=== PATIENT | male | born 1950 | race Caucasian/White ===

== ENCOUNTER 2019-10-05 07:33 | Outpatient (CLI) | payer MEDICARE, SELFPAY ==
[2019-10-05 07:43] LABS: Add Urine Microscopic? NO; Appearance Urine Clear (Clear); Bilirubin Urine Negative (Negative); Blood Urine Negative (Negative); Color Urine Yellow (Yellow); Glucose Urine UA Negative (Negative); Ketones Urine Negative (Negative); Leukocyte Esterase Ur Negative (Negative); Nitrate Urine Negative (Negative); Protein Urine Negative (Negative); Urobilinogen Urine 0.2 mg/dL (0.2-1.0); pH Urine 5.5 (5.0-8.0)
[2019-10-05 07:54] LABS: Hemoglobin A1C 5.7 % (<5.7)
[2019-10-05 08:55] LABS: Alanine Aminotransferase 39 U/L (16-63); Albumin Level 3.5 g/dL (3.4-5.0); Alkaline Phosphatase 83 U/L (46-116); Anion Gap 13.3 mmol/L (7-16); Aspartate Amino Transferase 29 U/L (15-37); Bilirubin,Total 0.4 mg/dL (0.00-1.00); Blood Urea Nitrogen 13 mg/dL (7-18); Carbon Dioxide 28 mmol/L (21-32); Chloride 103 mmol/L (98-108); Cholesterol 240 mg/dL (0-200); Creatine Kinase 181 U/L (39-308); Estimated Glomerular Filt Rate > 60; Free T3 3.13 pg/mL (2.18-3.98); Free T4 Free Thyroxine 0.98 ng/dL (0.76-1.46); Glucose 115 mg/dL (70-99); HDL Direct 74 mg/dL (40-60); LDL Cholesterol Calculated 142 mg/dL (<130); Osmolality Calculated 291 mOsm/kg (285-295); Potassium 4.3 mmol/L (3.5-5.1); Sodium 140 mmol/L (136-145); Thyroid Stimulating Hormone 1.98 uIU/mL (0.36-3.74); Total Protein 6.2 g/dL (6.4-8.2); Triglycerides 121 mg/dL (0-150)
[2019-10-05 09:18] LABS: Prostate Specific Antigen 4.9 ng/mL (< OR = 4.0)
== END 2019-10-05 07:34 | disposition home or self-care (01) ==
PROVIDERS: PCP Internal Medicine; Visit Provider Internal Medicine
DX: I10 Essential (primary) hypertension (principal); E78.2 Mixed hyperlipidemia; I48.0 Paroxysmal atrial fibrillation; Z12.5 Encounter for screening for malignant neoplasm of prostate; R73.01 Impaired fasting glucose
CPT/HCPCS: 36415; 80053; 80061; 81003; 82550; 83036; 83735; 84153; 84439; 84443; 84481; G0103

== ENCOUNTER 2019-10-08 09:54 | Outpatient (CLI) | payer MEDICARE, SELFPAY ==
--- NOTE | ~2019-10-08 | XR_ITS ---
EXAMINATION: XR knee LT min 4V DATE: 10/08/2019 10:25 INDICATION: Left knee pain. TECHNIQUE: 4 views of left knee were obtained. COMPARISON: None. FINDINGS: There is varus attenuation at the knee. No fracture. There is severe osteoarthritis of medi al compartment, moderate osteoarthritis of lateral compartment, and mild osteoarthritis of patellofem oral compartment. There is a small knee joint effusion. IMPRESSION: 1. Severe left knee osteoarthritis. 2. Small knee joint effusion. Reviewed, dictated and finalized at location A.
== END 2019-10-08 09:55 | disposition home or self-care (01) ==
PROVIDERS: PCP Internal Medicine; Visit Provider Internal Medicine
DX: M17.12 Unilateral primary osteoarthritis, left knee (principal); M25.562 Pain in left knee
CPT/HCPCS: 73564

== ENCOUNTER 2019-12-30 07:48 | Outpatient (CLI) | payer MEDICARE, SELFPAY ==
[2019-12-30 08:38] LABS: Prostate Specific Antigen 5.1 ng/mL (< OR = 4.0)
== END 2019-12-30 07:49 | disposition home or self-care (01) ==
LOC: CHSLAB 07:49
PROVIDERS: PCP Internal Medicine; Visit Provider Internal Medicine
DX: R97.20 Elevated prostate specific antigen [PSA] (principal)
CPT/HCPCS: 36415; 84153

== ENCOUNTER 2020-01-18 07:38 | Outpatient (CLI) | payer MEDICARE, SELFPAY ==
--- NOTE | ~2020-01-18 | XR_ITS ---
EXAMINATION: XR chest 2V 01/18/2020 08:54 INDICATION: Preop. Atrial fibrillation. PROCEDURE: 2 view chest COMPARISON: 04/15/2018 FINDINGS: The lungs are clear. The cardiomediastinal silhouette is within normal limits. There are no pleural effusions. There is no pneumothorax suspected. Calcified granuloma left lung base. IMPRESSION: 1: NO ACUTE CARDIOPULMONARY DISEASE. Reviewed, dictated and finalized at location B.
--- NOTE | 2020-01-18 08:35 | ECG_ITS ---
Measurements Intervals [place] Rate: 61 P: 24 NM: 162 QRS: -7 QRSD: 92 T: 10 QT: 416 QTc: 422 Interpretive Statements SINUS RHYTHM WITH SINUS ARRHYTHMIA NORMAL ECG Electronically Signed On 01-18-2020 8:53:22 CDT by Main Phelps D.O.
[2020-01-18 08:59] LABS: Basophils Absolute Auto 0.1 K/mm3 (0.0-0.1); Basophils Percent Auto 0.9 % (0.2-1.2); Eosinophils Absolute Auto 0.1 K/mm3 (0-0.3); Eosinophils Percent Auto 0.9 % (0-4.4); Hematocrit 45.8 % (42.0-52.0); Hemoglobin 15.3 g/dL (14.0-18.0); Immature Granulocyte Absolute 0.02 K/mm3 (0.00-0.031); Immature Granulocyte Percent A 0.3 % (0-0.5); Lymphocytes Absolute Auto 1.73 K/mm3 (0.9-3.2); Lymphocytes Percent Auto 27.1 % (18.3-44.2); Mean Corpuscular HGB Conc 33.4 g/dl (32-36); Mean Corpuscular Hemoglobin 31.7 pg (26-34); Mean Corpuscular Volume 94.8 fl (80-100); Monocytes Absolute Auto 0.7 K/mm3 (0.1-0.6); Neutrophils Absolute Auto 3.8 K/mm3 (1.3-6.7); Neutrophils Percent Auto 59.8 % (45.5-73.1); Platelet Count Result 210 k/mm3 (150-375); Red Blood Count 4.83 M/mm3 (4.6-6.20); Red Cell Distribution Width 13.2 % (11.5-14.5); White Blood Count 6.4 K/mm3 (4.5-10.0)
[2020-01-18 09:09] LABS: Urine Cotinine NEGATIVE
[2020-01-18 09:10] LABS: Albumin Level 4.1 g/dL (3.5-5.1); Anion Gap 5 mmol/L (8-16); Blood Urea Nitrogen 11 mg/dL (9-20); Calcium 9.2 mg/dL (8.4-10.2); Carbon Dioxide 29 mmol/L (22-30); Chloride 103 mmol/L (98-107); Estimated Glomerular Filt Rate > 60; Glucose 117 mg/dL (75-110); Potassium 4.6 mmol/L (3.4-5.0); Sodium 137 mmol/L (137-145)
[2020-01-18 09:23] LABS: Hemoglobin A1C 5.4 % (<5.7)
== END 2020-01-18 07:39 | disposition home or self-care (01) ==
PROVIDERS: PCP Internal Medicine; Visit Provider Orthopaedic Surgery
DX: Z01.818 Encounter for other preprocedural examination (principal); M17.12 Unilateral primary osteoarthritis, left knee
CPT/HCPCS: 71046; 80048; 80307; 82040; 83036; 85025; 87070; 87077; 87186; 93005

== ENCOUNTER 2020-01-31 01:00 | Outpatient (CLI) | payer MEDICARE, SELFPAY ==
[2020-01-31 18:01] LABS: SARS-CoV-2 RNA PCR Negative
== END 2020-01-31 01:01 | disposition home or self-care (01) ==
LOC: ANHCOVIDDT 01:00
PROVIDERS: PCP Internal Medicine; Visit Provider Orthopaedic Surgery
DX: Z01.812 Encounter for preprocedural laboratory examination (principal); Z20.828 Contact with and (suspected) exposure to other viral communicable diseases
CPT/HCPCS: 87635; C9803; U0003

== ENCOUNTER 2020-02-02 00:53 | Day surgery (SDC) | payer MEDICARE, SELFPAY ==
[2020-01-18 08:15] VITALS: BP 156/88; PULSE 64; RESP 20; TEMP 37.1; O2SAT 97; BMI 27.1
--- NOTE | 2020-01-28 11:46 | PM.IMHP ---
H&P: HPI History of Present Illness Date/Time: 01/28/20 11:46 <SCOTT Giles - Last Filed: 01/28/20 11:54> Chief complaint: OA Left Knee <SCOTT Giles - Last Filed: 01/28/20 11:54> Narrative: Brian Renee is a 69 year old male Of who presents today for a left total knee arthroplasty. He has been having pain in this knee progressively worsening over the course of years. He is unable take anti-inflammatories because of being on Eliquis for his AFib. He has been fairly miserable with the pain in the knee for extended period time and feels at this point is ready to proceed with total knee arthroplasty rather continuing nonsurgical treatment. <SCOTT Giles - Last Filed: 01/28/20 11:54> Review of Systems Review of Systems: All systems reviewed & are unremarkable except as noted in HPI and below <SCOTT Giles - Last Filed: 01/28/20 11:54> [facility] Past Medical History Medical History: Medical History (Updated 02/02/20 @ 11:31 by Demetrio Luong MD) History of atrial fibrillation <SCOTT Giles - Last Filed: 01/28/20 11:54> Surgical History Surgical History: Surgical History (Updated 02/02/20 @ 11:32 by Demetrio Luong MD) S/P arthroscopic knee surgery <SCOTT Giles - Last Filed: 01/28/20 11:54> Social History Social History: Social History Smoking status: Never smoker Alcohol intake: current Drinks per week: 3 Substance use: never Living arrangements: alone Spiritual care concerns: No <SCOTT Giles - Last Filed: 01/28/20 11:54> Meds Home Medications and Allergies Home medications: Home Medications Medication Instructions Recorded Confirmed Type apixaban [Eliquis] 5 mg PO BID 01/18/20 02/02/20 History cholecalciferol (vitamin D3) 25 mcg PO QAM 01/18/20 02/02/20 History metoprolol tartrate 12.5 mg PO BID 01/18/20 02/02/20 History tamsulosin 0.4 mg PO QAM 01/18/20 02/02/20 History zinc 50 mg PO QAM 01/18/20 02/02/20 History <SCOTT Giles Last Filed: 01/28/20 11:54> Allergies/Adverse reactions: Allergies Allergy/AdvReac Type Severity Reaction Status Date / Time No Known Allergies Allergy Verified 02/02/20 10:13 <SCOTT Giles Last Filed: 01/28/20 11:54> Exam Narrative: Exam Narrative: 69-year-old male very alert pleasant. He is 5 ft 7 and 199 lb. His left knee he has no palpable effusion. Has an obvious varus deformity of the knee with range of motion of 3-140 degrees. Negative Doug's. Mild medial pseudolaxity. Mild tenderness over the medial joint line. Hip range of motion is full without discomfort, a negative Stinchfield maneuver. Normal quad strength. No edema in either lower extremity. Skin is all normal. 2+ dorsalis pedis and posterior tibial pulse palpable. <SCOTT Giles - Last Filed: 01/28/20 11:54> HENMT: Head: normal to inspection <SCOTT Giles Last Filed: 01/28/20 11:54> Resp: Auscultation: clear to auscultation bilaterally <SCOTT Giles Last Filed: 01/28/20 11:54> Cardio: Rate: regular rate <SCOTT Giles Last Filed: 01/28/20 11:54> Rhythm: abnormal rhythm <SCOTT Giles Last Filed: 01/28/20 11:54> Assessment and Plan Additional Plan 69-year-old male who has severe medial compartment arthritis with significant symptoms on a daily basis. He is fairly miserable with pain in his knee in the disability that is causing him on a daily basis. Again he would like proceed with total knee arthroplasty with a continued nonsurgical treatment. Patient will see his primary care doctor as well as his knitter mechanic prior to surgery. He will stop his Eliquis 3 days prior to surgery, postoperatively we will utilize low-dose Eliquis initially and then have the patient resume his normal dosing around the 2 week claudia postop. Patient's nasal swab did grow heavy growth
[2020-02-02] VITALS (13 sets, daily range): BP systolic 111–179; BP diastolic 62–87; PULSE 72–95; RESP 12–20; TEMP 36.1–37; O2SAT 94–100
--- NOTE | ~2020-02-02 | XR_ITS ---
EXAMINATION: XR knee LT 2V DATE: 02/02/2020 16:29 INDICATION: Postoperative evaluation following left knee arthroplasty. TECHNIQUE: Anteroposterior and lateral views of the left knee were obtained. COMPARISON: 10/08/2019 FINDINGS: Left total knee arthroplasty without patellar resurfacing appears well seated and in near anatomic al ignment. No fractures identified. Expected postoperative subcutaneous and intra-articular gas. IMPRESSION: 1. Left total knee arthroplasty, negative for postoperative purposes. Reviewed, dictated and finalized at location A.
[2020-02-02] MEDS: LACTATED RINGERS 1,000 ML 30 ML IV CONT ×2 (10:20→16:07)
[2020-02-02] MEDS: ACETAMINOPHEN 500 MG TABLET 1000 MG PO ×2 (10:23→23:34)
[2020-02-02] MEDS: KETOROLAC 15 MG/ML VIAL (*BKC) IV PUSH (10:31)
[2020-02-02] MEDS: TRANEXAMIC ACID 1,000MG/ISO100 1,000 MG/100 ML BAG 200 MG IVPB (11:29)
--- NOTE | 2020-02-02 11:30 | WPDANESEPPF ---
Anes - Initial Pre Proc Eval Procedure: Operation Date: 02/02/20 12:00 Proposed Procedures p Left Total Knee Arthroplasty - Landen Choudhury MD Date/Time: 02/02/20 11:30 Surgeon: Landen Choudhury MD Pre Op Diagnosis: OA Left Knee Patient Data Age: 69 Gender: M Height: 6 ft Weight: 87.6 kg Last Vital Signs Temp 36.4 C L 02/02/20 10:01 Pulse 72 02/02/20 10:01 Resp 20 02/02/20 10:01 BP 179/82 H 02/02/20 10:01 Pulse Ox 100 02/02/20 10:01 Allergies Allergy/AdvReac Type Severity Reaction Status Date / Time No Known Allergies Allergy Verified 02/02/20 10:13 Home Medications Medication Instructions Recorded Confirmed Type apixaban [Eliquis] 5 mg PO BID 01/18/20 02/02/20 History cholecalciferol (vitamin D3) 25 mcg PO QAM 01/18/20 02/02/20 History metoprolol tartrate 12.5 mg PO BID 01/18/20 02/02/20 History tamsulosin 0.4 mg PO QAM 01/18/20 02/02/20 History zinc 50 mg PO QAM 01/18/20 02/02/20 History Patient hx anesthesia problems: none Family hx anesthesia problems: none [facility] Past Medical History Medical History (Updated 02/02/20 @ 11:31 by Demetrio Luong MD) History of atrial fibrillation Surgical History Surgical History (Updated 02/02/20 @ 11:32 by Demetrio Luong MD) S/P arthroscopic knee surgery Social History Social History Smoking status: Never smoker Alcohol intake: current Drinks per week: 3 Substance use: never Living arrangements: alone Spiritual care concerns: No Anes - Eval Final PreProcedure Day of Procedure 02/02/20 11:30 Patient weight: overweight Heart: regular rate and rhythm Lungs: clear to auscultation Airway: Mallampati scale class II Neurological: alert and oriented Last oral intake: >/= 8 hours ASA classification: III Emergent: no Anesthetic plan: proceed Anesthesia type and monitoring: general LMA and standard monitoring Informed Consent: The patient's anesthetic plan and its attendant risks and benefits were discussed with the patient/family/POA. Questions were solicited and answers provided to the satisfaction of the patient/family/POA.
--- NOTE | 2020-02-02 11:49 | WPDHPUPDATE1 ---
History and Physical Update Update Date/Time: 02/02/20 11:49 History and Physical has been reviewed, including an updated exam of the patient. There are NO changes in the patient's condition. Risks, benefits, and alternatives have been discussed and questions answered. Patient agrees to proceed with procedure.
[2020-02-02] MEDS: ceFAZolin 2 GM/D5W 50 ML 2 GM/50 ML BAG IVPB (12:05)
[2020-02-02] MEDS: GENTAMICIN BONE CEMENT REFOBACIN 1 EACH TOPICAL (12:53)
[2020-02-02] MEDS: ceFAZolin SODIUM 1 GM VIAL 3 GM IRRIGATION (12:53)
[2020-02-02] MEDS: TRANEXAMIC ACID 1,000 MG/10 ML AMPUL 1000 MG IV PUSH (14:30)
[2020-02-02] MEDS: ceFAZolin SODIUM 1 GM VIAL IV PUSH (14:30)
--- NOTE | 2020-02-02 16:24 | PM.PROC ---
Procedure Note - Detailed Date of procedure: 02/02/20 Pre-op diagnosis: OA Left Knee Post-op diagnosis: same Procedure performed: Left TKA Description of procedure: Patient patient was brought to the operating room and general anesthesia was administered. He received 2 g of Ancef weight based vancomycin 1 g of tranexamic acid preoperatively in the left leg prepped draped usual fashion. Limb was exsanguinated and tourniquet elevated to 300 mmHg. A 7 in longitudinal midline incision was used and a standard parapatellar arthrotomy utilized. The cartilage on the patella was completely normal. Tiny marginal osteophytes removed a minimal lateral facetectomy was performed. ACL was deficient he had. The areas of exposed bone on both the medial femoral condyle and medial tibial plateau. A guide yuliet was inserted down the femoral canal after aspiration of canal contents in using the 5 degree valgus cutting bushing, 9 mm of bone removed the distal femur. Next the tibial plateau was cut. We made a cut that was just a mm under the low point of the medial tibial plateau. He had some polished eburnation where extending to the far posteromedial margin of the patella with this area would not be underneath the component. This cut removed about 10 mm of bone laterally. Anteromedial mid medial osteophyte was removed the tibia. At 90? of flexion gap measured 6 mm medially and 10 or 11 mm laterally. We applied the femoral sizing guide at 5? of external rotation which matched Whitesides line exactly. The femur was cut to a 70 vanguard and this was just a little bit too wide we cut down to 67.5 which gave a nice fit all around. The tibia was sized to a 75. The tray was punched at proper rotation referenced off the anterior cortex of the tibial plateau the medial 1/3 of the tibial tubercle and the foot and a large posteromedial osteophyte was removed from the tibial plateau at this time. On trialing the knee had and a little bit of play between 1 and 2 mm with a Potter elevator at 90? with a 10 mm insert and lacked a few degrees of extension. A large posterior medial femoral osteophyte was present. We applied the femoral component and posterior femoral osteophytes removed. On trialing the still lacked a little bit of extension and central posterior capsular release was performed and then trialing in extension we had about 0.5 mm of medial opening 3 mm lateral opening with a 10 insert in full extension with a negative bounce but there was a little bit too much play I felt at 90?. We trialed the 11 mm insert and this gave us perfect stability in flexion each side medially and laterally opening less than 1 mm to valgus and varus stress at 90?. Anterior drawer was a few mm. However the needed go out straight now lacking a few degrees of extension therefore additional mm of bone was removed the distal femur at this time chamfer cuts revisited. On trialing once again with the 11 insert the knee came out to full extension with negative bounce less than 1 mm medial opening 3 lateral and excellent stability at 90? and gravity flexion to 140?. Lug holes were drilled femoral component. Step drill was used to make multiple perforations in the dense bone of the medial tibial plateau and distal posterior femur. Bony surfaces were thoroughly irrigated and dried. Two batches of Biomet methylmethacrylate 1 continue gentamicin powder mixed. The cement was immediately applied the 75 tibial component then the 67.5 CR femoral component and then applied the tibia pressurized in the tibial component fully seated. Cement applied to the femur and the femoral component fully seated the knee brought to extension with 11 mm 5 and 1 trial for cement pressurization the tourniquet released at 111 minutes. After cement hardening excess cement was sought for removed. We trialed the 11 insert and we had excellent range of motion and stability throughout as described above. After through irrigation with an
[2020-02-02] MEDS: oxyCODONE HCL (*CRX) 5 MG TAB IR PO ×2 (19:05→21:17)
[2020-02-02] MEDS: DOCUSATE SODIUM 100 MG CAPSULE PO (19:55)
[2020-02-02] MEDS: SENNA/DOCUSATE SODIUM TABLET 2 TAB PO (19:55)
[2020-02-02] MEDS: METOPROLOL TARTRATE 12.5 MG TABLET PO (21:17)
--- NOTE | 2020-02-02 23:17 | PM.IMHP ---
H&P: HPI History of Present Illness Date/Time: 02/02/20 23:17 Chief complaint: OA Left Knee Narrative: Brian Renee is a 69 year old male Who has a history of atrial fibrillation. He has been dealing with left knee osteoarthritis and pain for at least 10 years. The patient stated he has never tried any injections. His goal was to keep moving as long as he would continue to move he could keep the pain under control. The patient has difficulty walking and was riding his bike for some time but then that became difficult as well. The patient has been unable to take inflammatory due to being on Eliquis for his AFib. He did not try any gel injections or cortisone shots. He has been living with this pain for over 10 years. He said he had some arthroscopic surgeries 1 in his 20s and 1 in his 30s. I believe it was the right knee in his 20s in the left 1 in his 30s. Today the patient underwent a left total knee arthroplasty per Dr. pearce. See operative report. According to the report the patient had estimated blood loss of 150 mL no immediate complications were noted. The patient stated that he believes he had a nerve block to the left leg. Date of consult . Review of Systems Review of Systems: All systems reviewed & are unremarkable except as noted in HPI and below Constitutional: Constitutional: Reports as per HPI and Reports no additional constitutional complaints Eyes: Eyes: Reports as per HPI and Reports no additional eye complaints ENT: Reports system reviewed and no additional complaints, except as documented and Reports Normal hearing present Cardiovascular: Cardiovascular: Reports no additional cardiovascular complaints Respiratory: Respiratory: Reports no additional respiratory complaints and Reports no additional respiratory complaints Gastrointestinal: Gastrointestinal: Reports as per HPI and Reports no additional gastrointestinal complaints Musculoskeletal: Musculoskeletal: Reports no additional musculoskeletal complaints Integumentary/Breasts: Skin/Breast: Reports system reviewed and no additional complaints, except as docu and Reports as per HPI Neurologic: Reports system reviewed and no additional complaints, except as documented, Reports as per HPI and Reports Normal hearing present Psychiatric: Psychiatric: Reports no additional psychiatric complaints and Reports as per HPI Endocrine: Endocrine: Reports no additional endocrine complaints Hematologic/Lymphatic: Hematologic/Lymphatic: Reports no additional hematologic/lymphatic complaints Allergic/Immunologic: Allergic/Immunologic: Reports no additional allergic/immunologic complaints [facility] Past Medical History Medical History (Updated 02/02/20 @ 11:31 by Demetrio Luong MD) History of atrial fibrillation Surgical History Surgical History (Updated 02/02/20 @ 23:22 by Wendy Velásquez NP) H/O colonoscopy with polypectomy H/O umbilical hernia repair History of total left knee replacement today 02/02/2020 S/P arthroscopic knee surgery right knee in his 20s and left knee in his 30s. Family History Family History (Updated 02/02/20 @ 23:23 by Wendy Velásquez NP) Mother Natural with unknown cause Father Natural with unknown cause Social History Social History Smoking status: Never smoker Alcohol intake: never Drinks per week: 3 Substance use: never Living arrangements: alone Gender identity (if verbalized by the patient): Male Spiritual care concerns: No Meds Home Medications and Allergies Home Medications Medication Instructions Recorded Confirmed Type apixaban [Eliquis] 5 mg PO BID 01/18/20 02/02/20 History cholecalciferol (vitamin D3) 25 mcg PO QAM 01/18/20 02/02/20 History metoprolol tartrate 12.5 mg PO BID 01/18/20 02/02/20 History tamsulosin 0.4 mg PO QAM 01/18/20 02/02/20 History zinc 50 mg PO QAM 01/18/20 02/02/20 History
--- NOTE | 2020-02-02 23:25 | PM.IMCN ---
Assessment and Plan Assessment and plan (1) History of total left knee replacement: Code(s): Z96.652 - Presence of left artificial knee joint Status: Acute Assessment and Plan: Performed today. The patient had been on Eliquis until the last 7 days has been on hold. He has bilateral knee-high SALLIE hose and SCDs. Patient states that he will restart his Eliquis tomorrow as per Ortho. DVT prophylaxis i per Ortho. Postop care per Ortho. Pain management per Ortho. The patient stated that his daughter will come home and help him to recover from his knee surgery. (2) BPH (benign prostatic hyperplasia): Code(s): N40.0 - Benign prostatic hyperplasia without lower urinary tract symptoms Status: Chronic Assessment and Plan: Patient has been on tamsulosin (3) Atrial fibrillation: Code(s): I48.91 - Unspecified atrial fibrillation Status: Chronic Assessment and Plan: Eliquis has been on hold. His metoprolol has been continued. HPI Data of Consult Consult date: 02/02/20 Requesting Physician: Landen Choudhury MD Primary Care Provider: Lamar Harry MD Consult Narrative Narrative: Brian Renee is a 69 year old male who has a history of atrial fibrillation. And he had been on Eliquis up until 7 days prior to the surgery. The patient stated he has not been in atrial fibrillation for over 2 years. He has had 1 episode. The patient stated he has been dealing with osteoarthritis to bilateral knees for over 10 years now. The patient stated he used to run and is no longer able to run and has to ride his bike instead. The patient has not been able to take NSAIDs due to being on Eliquis for his AFib. The patient has had bilateral knees scoped in the past the right 1 in his 20s in the left 1 is 30s. The patient is a nonsmoker. The patient has not had any injections in the past neither cortisone are gel. The patient has been miserable for an extended amount of time and proceeded with a left total knee arthroplasty per Dr. choudhury today. See operative report. The patient stated he feels that he had a nerve block today but he is unsure. According to the records there were no complications. Estimated blood loss was 150 mL. Patient is not having any complications at this time. Patient was admitted under orthopedic physician and I did my consult on today 02/02/2020 Review of Systems Review of Systems: All systems reviewed & are unremarkable except as noted in HPI and below Constitutional: Constitutional: Reports as per HPI and Reports no additional constitutional complaints Eyes: Eyes: Reports as per HPI and Reports no additional eye complaints ENT: Reports system reviewed and no additional complaints, except as documented and Reports Normal hearing present Cardiovascular: Cardiovascular: Reports no additional cardiovascular complaints Respiratory: Respiratory: Reports no additional respiratory complaints and Reports no additional respiratory complaints Gastrointestinal: Gastrointestinal: Reports as per HPI and Reports no additional gastrointestinal complaints Musculoskeletal: Musculoskeletal: Reports no additional musculoskeletal complaints Integumentary/Breasts: Skin/Breast: Reports system reviewed and no additional complaints, except as docu and Reports as per HPI Neurologic: Reports system reviewed and no additional complaints, except as documented, Reports as per HPI and Reports Normal hearing present Psychiatric: Psychiatric: Reports no additional psychiatric complaints and Reports as per HPI Endocrine: Endocrine: Reports no additional endocrine complaints Hematologic/Lymphatic: Hematologic/Lymphatic: Reports no additional hematologic/lymphatic complaints Allergic/Immunologic: Allergic/Immunologic: Reports no additional allergic/immunologic complaints [facility] Past Medical History Medical History (Updated 02/02/20 @ 23:30 by Wendy Velásquez NP) Atrial fibrillati
[2020-02-03] VITALS: BP 156/84; PULSE 65; PULSE 69; RESP 18; TEMP 36.9; O2SAT 100
[2020-02-03] MEDS: oxyCODONE HCL (*CRX) 5 MG TAB IR PO ×4 (00:53→13:19)
[2020-02-03 04:00] VITALS: BP 152/71; PULSE 58; PULSE 68; RESP 20; TEMP 36.4; O2SAT 98
[2020-02-03] MEDS: ACETAMINOPHEN 500 MG TABLET 1000 MG PO ×2 (05:33→13:19)
[2020-02-03 05:47] LABS: Basophils Absolute Auto 0.1 K/mm3 (0.0-0.1); Basophils Percent Auto 0.4 % (0.2-1.2); Eosinophils Percent Auto 0.3 % (0-4.4); Hematocrit 40.3 % (42.0-52.0); Hemoglobin 13.6 g/dL (14.0-18.0); Immature Granulocyte Absolute 0.07 K/mm3 (0.00-0.031); Immature Granulocyte Percent A 0.5 % (0-0.5); Lymphocytes Percent Auto 13.5 % (18.3-44.2); Mean Corpuscular HGB Conc 33.7 g/dl (32-36); Mean Corpuscular Hemoglobin 31.9 pg (26-34); Mean Corpuscular Volume 94.6 fl (80-100); Monocytes Absolute Auto 1.5 K/mm3 (0.1-0.6); Neutrophils Absolute Auto 9.9 K/mm3 (1.3-6.7); Neutrophils Percent Auto 74.3 % (45.5-73.1); Platelet Count Result 208 k/mm3 (150-375); Red Blood Count 4.26 M/mm3 (4.6-6.20); White Blood Count 13.3 K/mm3 (4.5-10.0)
[2020-02-03 06:02] LABS: Anion Gap 3 mmol/L (8-16); Blood Urea Nitrogen 11 mg/dL (9-20); Calcium 8.6 mg/dL (8.4-10.2); Carbon Dioxide 31 mmol/L (22-30); Chloride 100 mmol/L (98-107); Estimated CRCL calculation 76 ml/min; Estimated Glomerular Filt Rate > 60; Glucose 108 mg/dL (75-110); Potassium 4.2 mmol/L (3.4-5.0); Sodium 134 mmol/L (137-145)
--- NOTE | 2020-02-03 07:47 | PM.DS ---
DS: Admitting Diagnosis Admitting Diagnosis Admitting Diagnosis: OA Left Knee DS: Summary Time Spent with Patient Time attestation: patient is a 69-year-old gentleman who underwent total knee arthroplasty of left knee on 02/02/2020. He has had uneventful postoperative course. He is comfortable. We are going to initiate Eliquis 2.5 mg q.12 hours this morning for DVT prophylaxis. He remains in sinus rhythm he has been on a monitored bed. He has a history of atrial fibrillation but not for a long time. He is on Eliquis chronically 5 mg q.12 hours and we will increase his dose of Eliquis in 7 days to the 5 mg dose that he is normally on. He did test positive for heavy growth of Staph aureus in his nose preoperatively. He had decolonization and we will also use Keflex q.i.d. for 7 days postoperatively. This was oxacillin sensitive Staph aureus. He feels that he will be comfortable to be discharged home later today after therapy. His wound is dry there has been no drainage he has minimal swelling and sensory and motor examination are intact in the left leg and he has no other complaints. He has been afebrile with stable vital signs. His hemoglobin this morning is 13.6 so he has a very mild acute blood loss anemia. BMP shows slightly decreased sodium 134 otherwise unremarkable. DS: Data Data Completed and Pending Labs on day of discharge: Labs from last 24 hours 02/03/20 02/03/20 05:23 05:23 WBC 13.3 H RBC 4.26 L Hgb 13.6 L Hct 40.3 L MCV 94.6 MCH 31.9 MCHC 33.7 RDW 13.0 Plt Count 208 MPV 10.0 Immature Gran % (Auto) 0.5 Neut % (Auto) 74.3 H Lymph % (Auto) 13.5 L [place] % (Auto) 11.0 H Eos % (Auto) 0.3 Baso % (Auto) 0.4 Lymph # (Auto) 1.80 [place] # (Auto) 1.5 H Eos # (Auto) 0.0 Baso # (Auto) 0.1 Abs Immat Gran (auto) 0.07 H Absolute Neuts (auto) 9.9 H Absolute Nucleated RBC 0.0 Nucleated RBC % 0.0 Sodium 134 L Potassium 4.2 Chloride 100 Carbon Dioxide 31 H Anion Gap 3 L BUN 11 Creatinine 0.90 Estim Creat Clear Calc 76 Estimated GFR > 60 Glucose 108 Calcium 8.6 Discharge Plan Discharge Patient Disposition: Home, Self-Care Discharge Instructions: Avoid sitting in chair except for eating using the bathroom and receiving casts. When not up walking lay supine on her back on the couch room bed with the leg elevated on questions were pillows to reduce swelling. Focus on maintaining full straightening of the knee and focus on maintaining a good band to the knee. It is helpful to spend a few minutes doing those 2 exercises every hour while awake. You may be full weight-bearing. you may shower. change the Mepilex dressing on February 07. You will receive 1 to take home it is applied half to remove the 1 that is on currently. There is risk of bleeding into the knee with blood thinners. The 2.5 mg Eliquis dose is appropriate for preventing blood clots from forming in the veins of the legs after surgery. The 5 mg Eliquis does immediately after surgery poses risk of bleeding into the knee joint and therefore we will wait for 7 days after the surgery to start the high dose 5 mg twice daily dose that she use for prevention of stroke due to clots forming in the heart from atrial fibrillation. You have not been in atrial fibrillation during this hospitalization. Celebrex may indirectly increase the blood thinning effects of Eliquis and should not be used when you are on the stronger dose of 5 mg twice daily. It is very helpful in maintaining reduction of pain and inflammation immediately after surgery so we will use Celebrex while your on the low-dose of Eliquis but it will be stopped before you are on high-dose of Eliquis in 7 days you will receive 7 days of Keflex which is an antibiotic that is being used because your no was was found to be colonized with staphylococcus aureus which is a bacteria that causes most of the wound infections that we se
[2020-02-03 08:00] VITALS: BP 136/65; PULSE 61; PULSE 64; RESP 16; TEMP 36.3; O2SAT 97
[2020-02-03] MEDS: TAMSULOSIN HCL 0.4 MG CAPSULE PO (08:48)
[2020-02-03] MEDS: SENNA/DOCUSATE SODIUM TABLET 2 TAB PO (08:49)
[2020-02-03 08:50] VITALS: PULSE 61
[2020-02-03] MEDS: DOCUSATE SODIUM 100 MG CAPSULE PO (08:50)
[2020-02-03] MEDS: METOPROLOL TARTRATE 12.5 MG TABLET PO (08:50)
[2020-02-03] MEDS: CELECOXIB 200 MG CAPSULE PO (08:51)
[2020-02-03] MEDS: APIXABAN 2.5 MG TABLET PO (08:51)
[2020-02-03] MEDS: polyethylene glycoL 3350 17 GM POWD.PACK PO (08:52)
[2020-02-03] MEDS: CHOLECALCIFEROL 1,000 UNITS TABLET 1000 UNITS PO (08:52)
[2020-02-03] MEDS: ZINC SULFATE 220 MG CAPSULE PO (08:53)
--- NOTE | 2020-02-03 11:02 | WPDANESPN ---
Anes - Prog Note Post-Op Date/Time: 02/03/20 11:02 Cardiovascular status: normal Respiratory status: normal Airway patency: baseline Mental status: baseline Post-Op hydration status: normal Vital Signs: Last Vital Signs Temp 36.3 C L 02/03/20 08:00 Pulse 61 02/03/20 08:50 Resp 16 02/03/20 08:00 BP 136/65 02/03/20 08:00 Pulse Ox 97 02/03/20 08:00 Pain Score (VAS): 0 I/O: Intake & Output 02/02/20 02/03/20 02/03/20 23:59 07:59 15:59 Intake Total 950 800 360 Balance 950 800 360 Laboratory Tests 02/03/20 05:23 02/03/20 05:23 02/03/20 02/03/20 05:23 05:23 WBC 13.3 H RBC 4.26 L Hgb 13.6 L Hct 40.3 L MCV 94.6 MCH 31.9 MCHC 33.7 RDW 13.0 Plt Count 208 MPV 10.0 Immature Gran % (Auto) 0.5 Neut % (Auto) 74.3 H Lymph % (Auto) 13.5 L [place] % (Auto) 11.0 H Eos % (Auto) 0.3 Baso % (Auto) 0.4 Lymph # (Auto) 1.80 [place] # (Auto) 1.5 H Eos # (Auto) 0.0 Baso # (Auto) 0.1 Abs Immat Gran (auto) 0.07 H Absolute Neuts (auto) 9.9 H Absolute Nucleated RBC 0.0 Nucleated RBC % 0.0 Sodium 134 L Potassium 4.2 Chloride 100 Carbon Dioxide 31 H Anion Gap 3 L BUN 11 Creatinine 0.90 Estim Creat Clear Calc 76 Estimated GFR > 60 Glucose 108 Calcium 8.6 Post-procedural complaints: none Patient Feedback: Patient satisfied with anesthetic care.
[2020-02-03 12:00] VITALS: BP 177/83; PULSE 59; PULSE 73; RESP 16; TEMP 36.6; O2SAT 100
--- NOTE | 2020-02-03 13:05 | PM.IMPN ---
Progress Note: A&P Assessment and Plan (1) History of total left knee replacement: Code(s): Z96.652 - Presence of left artificial knee joint Status: Acute Assessment and Plan: Postop day 1. By Dr. Choudhury. He has bilateral knee-high SALLIE hose and SCDs. DVT prophylaxis per Ortho. Postop care per Ortho. Pain management per Ortho. The patient stated that his daughter will come home and help him to recover from his knee surgery. Patient is stable from medical standpoint for discharge at this time (2) BPH (benign prostatic hyperplasia): Code(s): N40.0 - Benign prostatic hyperplasia without lower urinary tract symptoms Status: Chronic Assessment and Plan: Patient has been on tamsulosin (3) Atrial fibrillation: Code(s): I48.91 - Unspecified atrial fibrillation Status: Chronic Assessment and Plan: Patient has not had any signs of AFib since arrival. Surgery is restarting his Eliquis. Continue metoprolol. Time Spent With Patient Time with patient: 25 - 35 minutes Subjective Date/time seen: 02/03/20 13:05 Interval history: Date of service 02/03/2020: Patient is feeling well today and doing well with therapy. He is eager to go home after this afternoon's therapy. He denies any chest pain, shortness of breath, palpitations, nausea, vomiting, abdominal pain, leg swelling, calf pain or any other symptoms at this time. He is eating drinking without any issues. Review of Systems Review of Systems: All systems reviewed & are unremarkable except as noted in HPI and below Exam Narrative: Exam Narrative: General: 69-year-old man laying flat in bed with head elevated at 40?. Appears comfortable. In no acute distress. Skin: No jaundice or cyanosis. Good skin turgor. Neck: Full range of motion. Supple. Nontender. Respiratory: Lungs are clear to auscultation bilaterally. No bony chest wall tenderness. Cardiovascular: The heart has a regular rate and rhythm without murmur. No carotid bruits. Lower extremities: Left knee with surgical dressing in place, no signs of drainage. Some ecchymosis noted to left lateral knee and some edema noted. No lower extremity edema. Distal pulses are easily palpated. No calf tenderness to palpation. Gastrointestinal: The abdomen is soft, nontender and nondistended with active bowel sounds. Psychiatric: Lucid and oriented. Memory intact. Neurologic: No focal deficits. Speech is clear. No facial drooping. Objective Data Vital Signs Vital Signs: Vital Signs - 24 hr 02/02/20 15:55 02/02/20 16:10 02/02/20 16:25 Temperature 97.2 F L Pulse Rate 95 90 86 Respiratory Rate 12 18 12 Blood Pressure 116/62 111/87 151/80 H Pulse Oximetry 100 100 97 02/02/20 16:40 02/02/20 16:55 02/02/20 17:20 Temperature 97.0 F L Pulse Rate 84 81 75 Respiratory Rate 17 18 18 Blood Pressure 132/73 140/82 148/83 H Pulse Oximetry 98 97 100 02/02/20 17:30 02/02/20 17:35 02/02/20 18:05 Temperature 97.3 F L 97.8 F Pulse Rate 77 77 74 Respiratory Rate 18 16 Blood Pressure 146/77 H 151/83 H Pulse Oximetry 94 95 02/02/20 19:05 02/02/20 20:00 02/02/20 21:17 Temperature 98.6 F 97.7 F Pulse Rate 80 90 78 Respiratory Rate 18 18 Blood Pressure 161/81 H 145/81 H Pulse Oximetry 96 99 02/03/20 00:00 02/03/20 04:00 02/03/20 08:00 Temperature 98.4 F 97.6 F 97.4 F L Pulse Rate 65 68 61 Respiratory Rate 18 20 16 Blood Pressure 156/84 H 152/71 H 136/65 Pulse Oximetry 100 98 97 02/03/20 08:50 02/03/20 12:00 Temperature 97.9 F Pulse Rate 61 59 L Respiratory Rate 16 Blood Pressure 177/83 H Pulse Oximetry 100 Intake/Output Intake/Output: Intake & Output 01/31/20 02/01/20 02/02/20 02/03/20 23:59 23:59 23:59 23:59 Intake Total 1250 1160 Balance 1250 1160 Meds/Results Medications: Active Medications Generic Name Dose Route Start Last Admin Trade Na
== END 2020-02-03 15:00 | disposition home or self-care (01) ==
LOC: ANHSURGERY 09:47 → ANH2MED 17:29
PROVIDERS: PCP Internal Medicine; Visit Provider Orthopaedic Surgery
PROC: (CPT 27447; principal; 2020-02-02 12:00)
DX: M17.12 Unilateral primary osteoarthritis, left knee (principal); D62 Acute posthemorrhagic anemia; N40.0 Benign prostatic hyperplasia without lower urinary tract symptoms; I48.91 Unspecified atrial fibrillation
CPT/HCPCS: 27447; 36415; 73560; 80048; 85025; 97110; 97116; 97161; 97165; 97530; A9270; C1713; C1776; J0171; J0690; J1100; J1885; J2250; J2270; J2370; J2405; J2704; J2795; J3010; J3370; J7120

== ENCOUNTER 2020-02-07 13:01 | Outpatient (RCR) | payer MEDICARE, SELFPAY ==
--- NOTE | 2020-02-07 13:55 | PTOPEVAL ---
Thank you for referring Brian Renee to [facility].? The patient is scheduled to be seen for therapy? __3__x/week for 12 visits. Please review, sign, date and return this plan of care NICOLASA. I agree with and certify that the following plan of care is medically necessary. Referring Physician Date Admitting Provider: Attending Provider: Landen Choudhury MD Referring Provider: *PT Outpatient Evaluation Start: 02/07/20 13:07 Freq: Status: Active Protocol: Document 02/07/20 13:07 SRIDEVI (Rec: 02/07/20 13:54 [email or web address] [email or web address]) Therapy Assessment Status Assessment Status Assessment Status Evaluation Outpatient Past Medical History Neurological History Hx Neurological Disorders No Significant History Cardiovascular History Hx Atrial Fibrillation Yes: INTERNAL COMBU[employer]ION [employer]ER [facility] Hx Other Cardiac Disorders Yes: BIKES 1HR DAILY, 15MIN LT WEIGHT LIFTING, 1HR YOGA 5 DAYS WEEK Respiratory History Hx Respiratory Disorders No Significant History Gastrointestinal History Hx Hernia Yes: UMBILICAL HERNIA REPAIR Hx Polyps Yes: REMOVED WITH COLONOSCOPY Genitourinary History Hx Benign Prostatic Hyperplasia Yes Musculoskeletal History Hx Amputation Yes: LT KNEE Hx Orthopedic Surgery Yes: BILATERAL KNEE ARTHROSCOPIES Hematological History Hx Hematological Disorders No Significant History Endocrine History Hx Endocrine Disorders No Significant History HEENT History Hx Cataracts Yes: REMOVED BILATERALLY Hx Other HEENT Disorders Yes: READING GLASSES Integumentary History Hx Excision Skin Lesion Yes: DUE TO SKIN CA Hx Other Skin Disorders Yes: SKIN CA - NOSE Reproductive History Hx Other Reproductive Disorders Yes: VASECTOMY Psychosocial History Hx Psychiatric Disorders No Significant History Pain History History of Any Previous or Ongoing No Significant History Instance of Pain Anesthesia History Hx Anesthesia Reactions No Significant History Other History Hx Cancer Yes: SKIN Evaluation Information Problem Diagnosis s/p left TKA Onset 02/02/20 Subjective Information Pt. reoprts that he underwent Query Text:As Reported By Patient/ left TKA last Friday. He Family reports that he returned home the following day. Pt. reports that he has been exercising daily. He states that he does have alot of swelling. He notes some difficulty with
--- NOTE | 2020-02-14 11:50 | PCPTNOTE ---
02/14/2020 Mr. Grewal has received 4 physical therapy outpatient treatments. Treatment has consisted of open kinetic chain activities and aggressive stretching in both flexion and extension, as well as edema control techniques. After treatment today patient has 3 to 80 degrees of active rom of the left knee. He remains limited due to pain and edema. He currently is performing Dr. Choudhury's rehab protocol at home on a daily basis. If you have any questions please give us a call at [phone]. Thank you. Quita Ramos PTA
--- NOTE | 2020-04-14 11:38 | PCPTNOTE ---
Mr. Renee attended a total of 10 treatment sessions. He demonstrated excellent progress in regards to mobiltiy and strength, however was encouraged by his surgeon to attend rehab in a different facility. Talked with the patient, who felt that he should abide by his surgeons recommendation. He is discharged from our care. Refer to the last daily note for patient discharge status. Edmund Guerrero, MPT
== END 2020-02-28 14:47 | disposition home or self-care (01) ==
LOC: CHSPT 13:01
PROVIDERS: PCP Internal Medicine; Visit Provider Orthopaedic Surgery
DX: Z96.652 Presence of left artificial knee joint (principal)
CPT/HCPCS: 97016; 97110; 97161

== ENCOUNTER 2020-05-31 14:48 | Outpatient (CLI) | payer MEDICARE, SELFPAY ==
[2020-05-31 15:56] LABS: SARS-CoV-2 Ag Negative (Negative)
[2020-06-01 16:55] LABS: SARS-CoV-2 RNA PCR Negative
== END 2020-05-31 14:49 | disposition home or self-care (01) ==
LOC: CHSLAB 14:51
PROVIDERS: PCP Internal Medicine; Visit Provider Internal Medicine
DX: R51.9 Headache, unspecified (principal); R50.9 Fever, unspecified; Z20.822 Contact with and (suspected) exposure to COVID-19
CPT/HCPCS: 87426; C9803; U0003; U0005

== ENCOUNTER 2020-06-05 07:12 | Outpatient (CLI) | payer MEDICARE, SELFPAY ==
[2020-06-05 07:24] LABS: Add Urine Microscopic? YES; Appearance Urine Sl Cloudy (Clear); Bilirubin Urine Negative (Negative); Blood Urine 3+ (Negative); Color Urine Yellow (Yellow); Glucose Urine UA Negative (Negative); Ketones Urine Negative (Negative); Leukocyte Esterase Ur 2+ (Negative); Nitrate Urine Positive (Negative); Protein Urine Negative (Negative); Urobilinogen Urine 0.2 mg/dL (0.2-1.0)
[2020-06-05 07:30] LABS: Bacteria Urine 2+ /hpf; WBC Urine 31-50 /hpf (0-3)
[2020-06-05 07:35] LABS: Hemoglobin A1C 5.3 % (<5.7)
[2020-06-05 08:51] LABS: Alanine Aminotransferase 42 U/L (16-63); Albumin Level 3.2 g/dL (3.4-5.0); Alkaline Phosphatase 105 U/L (46-116); Anion Gap 9 mmol/L (8-16); Aspartate Amino Transferase 20 U/L (15-37); Bilirubin,Total 0.2 mg/dL (0.00-1.00); Blood Urea Nitrogen 13 mg/dL (7-18); Carbon Dioxide 30 mmol/L (21-32); Chloride 104 mmol/L (98-108); Cholesterol 179 mg/dL (0-200); Estimated Glomerular Filt Rate > 60; Glucose 106 mg/dL (70-99); HDL Direct 36 mg/dL (40-60); LDL Cholesterol Calculated 113 mg/dL (<130); Osmolality Calculated 296 mOsm/kg (285-295); Potassium 4.8 mmol/L (3.5-5.1); Sodium 143 mmol/L (136-145); Total Protein 6.3 g/dL (6.4-8.2); Triglycerides 148 mg/dL (0-150)
== END 2020-06-05 07:13 | disposition home or self-care (01) ==
LOC: CHSLAB 07:14
PROVIDERS: PCP Internal Medicine; Visit Provider Internal Medicine
DX: E78.2 Mixed hyperlipidemia (principal); I10 Essential (primary) hypertension; R73.01 Impaired fasting glucose
CPT/HCPCS: 36415; 80053; 80061; 81001; 83036

== ENCOUNTER 2020-06-08 08:39 | Outpatient (CLI) | payer MEDICARE, SELFPAY ==
--- NOTE | ~2020-06-08 | CT_ITS ---
EXAMINATION: CT abdomen pelvis w con EXAM DATE: 06/08/2020 09:19 INDICATION: Prostate cancer. TECHNIQUE: Spiral CT of the abdomen and pelvis was performed following intravenous injection of 100 m L Omnipaque 350. Axial, coronal and sagittal images were reviewed. The dose-length product (DLP) fo r this examination was 618.83 mGy-cm. The exposure was tailored according to patient size (auto mA e xposure control), and iterative reconstruction (ASIR) was used as additional dose reduction technique . There is no prior study for comparison. FINDINGS: There is a hypodensity in the left liver lobe lateral segment measuring 3 cm consistent wit h a cyst. The spleen, pancreas, and adrenal glands are unremarkable. Gallbladder is unremarkable. No biliary obstruction. Portal and splenic veins are patent. Kidneys enhance symmetrically. There is no hydronephrosis. Small right inguinal hernia containing fat. The prostate is unremarkable. The bladder is unremarkable. There is no retroperitoneal or pelvic lymphadenopathy. There is mild sca ttered arteriosclerotic disease. The appendix is normal. The stomach and small bowel are unremarkable. There is expected amount of c olonic stool. No free intraperitoneal gas. The heart is normal in size. There are no pericardial or pleural effusions. The lung bases are unremarkable. There are no osteoblastic or osteolytic les ions identified. IMPRESSION: 1. No evidence of metastatic disease. 2. Small right inguinal hernia. Reviewed, dictated and finalized at location B. ION MODEL
== END 2020-06-08 08:40 | disposition home or self-care (01) ==
PROVIDERS: PCP Internal Medicine; Visit Provider Urology
DX: C61 Malignant neoplasm of prostate (principal); K40.90 Unilateral inguinal hernia, without obstruction or gangrene, not specified as recurrent
CPT/HCPCS: 74177; Q9967

== ENCOUNTER 2020-06-09 10:17 | Outpatient (CLI) | payer MEDICARE, SELFPAY ==
[2020-06-09 10:37] LABS: Basophils Absolute Auto 0.04 K/mm3 (0.00-0.10); Basophils Percent Auto 0.5 % (0.0-1.0); Eosinophils Absolute Auto 0.05 K/mm3 (0.02-0.50); Eosinophils Percent Auto 0.6 % (1.0-6.0); Hematocrit 41.6 % (37.0-46.0); Hemoglobin 13.7 g/dL (12.4-15.3); Immature Granulocyte Absolute 0.08 K/mm3 (0.00-0.00); Immature Granulocyte Percent A 0.9 % (0.0-0.0); Lymphocytes Absolute Auto 1.45 K/mm3 (1.10-4.50); Lymphocytes Percent Auto 16.6 % (18.0-42.0); Mean Corpuscular HGB Conc 32.9 g/dL (32.0-36.0); Mean Corpuscular Hemoglobin 30.1 pg (27.0-31.0); Mean Corpuscular Volume 91.4 fL (78.0-102.0); Mean Platelet Volume 9.1 fl (8.7-11.0); Monocytes Absolute Auto 1.07 K/mm3 (0.10-0.90); Monocytes Percent Auto 12.3 % (2.0-11.0); Neutrophils Percent Auto 69.1 % (50.0-70.0); Platelet Count Result 246 K/mm3 (150-420); Red Blood Count 4.55 M/mm3 (4.70-6.10); Red Cell Distribution Width 13.6 % (11.6-14.4); White Blood Count 8.7 K/mm3 (4.8-10.8)
[2020-06-09 10:40] LABS: Add Urine Microscopic? YES; Appearance Urine Sl Cloudy (Clear); Bilirubin Urine Negative (Negative); Blood Urine 2+ (Negative); Color Urine Yellow (Yellow); Glucose Urine UA Negative (Negative); Ketones Urine Negative (Negative); Leukocyte Esterase Ur 3+ (Negative); Nitrate Urine Positive (Negative); Protein Urine Negative (Negative); Specific Grav Ur <= 1.005 (1.010-1.020); Urobilinogen Urine 0.2 mg/dL (0.2-1.0)
[2020-06-09 10:44] LABS: Bacteria Urine 1+ /hpf; Squamous Epithelial Cell Urine Rare /hpf (Few); WBC Urine >75 /hpf (0-3)
[2020-06-09 11:01] LABS: Prostate Specific Antigen 13.1 ng/mL (< OR = 4.0)
== END 2020-06-09 10:18 | disposition home or self-care (01) ==
LOC: CHSLAB 10:19
PROVIDERS: PCP Internal Medicine; Visit Provider Internal Medicine
DX: R30.0 Dysuria (principal); R68.83 Chills (without fever); R39.15 Urgency of urination
CPT/HCPCS: 36415; 81001; 84153; 85025; 87040; 87077; 87086; 87088; 87186

== ENCOUNTER 2020-06-22 10:22 | Outpatient (CLI) | payer MEDICARE, SELFPAY ==
[2020-06-22 10:41] LABS: Add Urine Microscopic? NO; Appearance Urine Clear (Clear); Bilirubin Urine Negative (Negative); Blood Urine Negative (Negative); Color Urine Yellow (Yellow); Glucose Urine UA Negative (Negative); Ketones Urine Negative (Negative); Leukocyte Esterase Ur Negative (Negative); Nitrate Urine Negative (Negative); Protein Urine Negative (Negative); Specific Grav Ur 1.025 (1.010-1.020); Urobilinogen Urine 0.2 mg/dL (0.2-1.0)
[2020-06-22 11:20] LABS: Prostate Specific Antigen 5.9 ng/mL (< OR = 4.0)
== END 2020-06-22 10:23 | disposition home or self-care (01) ==
LOC: CHSLAB 10:24
PROVIDERS: PCP Internal Medicine; Visit Provider Internal Medicine
DX: N39.0 Urinary tract infection, site not specified (principal); R97.20 Elevated prostate specific antigen [PSA]
CPT/HCPCS: 36415; 81003; 84153; 87086

== ENCOUNTER 2020-08-11 10:07 | Outpatient (CLI) | payer MEDICARE, SELFPAY ==
[2020-08-11 11:02] LABS: Basophils Percent Auto 0.6 % (0.2-1.2); Eosinophils Absolute Auto 0.1 K/mm3 (0-0.3); Eosinophils Percent Auto 1.4 % (0-4.4); Hematocrit 45.6 % (42.0-52.0); Hemoglobin 14.8 g/dL (14.0-18.0); Immature Granulocyte Absolute 0.03 K/mm3 (0.00-0.031); Immature Granulocyte Percent A 0.4 % (0-0.5); Lymphocytes Absolute Auto 2.09 K/mm3 (0.9-3.2); Lymphocytes Percent Auto 29.6 % (18.3-44.2); Mean Corpuscular HGB Conc 32.5 g/dl (32-36); Mean Corpuscular Hemoglobin 30.3 pg (26-34); Mean Corpuscular Volume 93.4 fl (80-100); Mean Platelet Volume 9.4 fl (7.4-10.4); Monocytes Absolute Auto 0.8 K/mm3 (0.1-0.6); Monocytes Percent Auto 10.6 % (2.6-8.5); Neutrophils Absolute Auto 4.1 K/mm3 (1.3-6.7); Neutrophils Percent Auto 57.4 % (45.5-73.1); Platelet Count Result 217 k/mm3 (150-375); Red Blood Count 4.88 M/mm3 (4.6-6.20); Red Cell Distribution Width 14.6 % (11.5-14.5); White Blood Count 7.1 K/mm3 (4.5-10.0)
[2020-08-11 11:13] LABS: INR 0.9; Prothrombin Time 13.2 Seconds (11.1-14.7)
[2020-08-11 11:14] LABS: Alanine Aminotransferase 30 U/L (4-50); Alkaline Phosphatase 90 U/L (38-126); Anion Gap 3 mmol/L (8-16); Aspartate Amino Transferase 28 U/L (17-59); Bilirubin,Total 0.3 mg/dL (0.2-1.3); Blood Urea Nitrogen 13 mg/dL (9-20); Carbon Dioxide 32 mmol/L (22-30); Chloride 104 mmol/L (98-107); Estimated Glomerular Filt Rate > 60; Glucose 103 mg/dL (75-110); Partial Thromboplastin Time 27.1 SECONDS (22.3-36.8); Potassium 4.2 mmol/L (3.4-5.0); Sodium 139 mmol/L (137-145)
== END 2020-08-11 10:08 | disposition home or self-care (01) ==
LOC: ANHSURGERY 10:12
PROVIDERS: PCP Internal Medicine; Visit Provider Urology
DX: C61 Malignant neoplasm of prostate (principal); Z01.818 Encounter for other preprocedural examination
CPT/HCPCS: 36415; 80053; 85025; 85610; 85730; 86850; 86880; 86900; 86901; 86902; 86922; 87086

== ENCOUNTER → 2020-08-18 01:51 | Outpatient (CLI) | payer MEDICARE, SELFPAY ==
[2020-08-18 19:39] LABS: SARS-CoV-2 RNA PCR Negative
== END ==
PROVIDERS: PCP Internal Medicine; Visit Provider Urology
DX: Z01.812 Encounter for preprocedural laboratory examination (principal); Z20.822 Contact with and (suspected) exposure to COVID-19
CPT/HCPCS: C9803; U0003; U0005

== ENCOUNTER 2020-08-22 14:55 | Observation (INO) | payer MEDICARE, SELFPAY ==
[2020-08-11 10:29] VITALS: BMI 27.8
[2020-08-21] VITALS (14 sets, daily range): BP systolic 124–148; BP diastolic 62–79; PULSE 65–94; RESP 15–24; TEMP 36.1–36.7; O2SAT 70–100
--- NOTE | 2020-08-21 08:52 | P.HP_ITS ---
H&P: HPI History of Present Illness Date/Time: 08/21/20 08:52 Chief Complaint: Adenocarcinoma of prostate Narrative: 70 yr old with adenocarcinoma of prostate. Presents for robotic prostatectomy. Review of Systems Review of Systems: All systems reviewed & are unremarkable except as noted in HPI and below PMFSH Past Medical History Medical History Atrial fibrillation chronically on Eliquis. The patient stated that he only had 1 bout about 2 and half years ago and has not been in AFib since. BPH (benign prostatic hyperplasia) History of atrial fibrillation Surgical History Surgical History H/O colonoscopy with polypectomy H/O umbilical hernia repair History of total left knee replacement today 02/02/2020 S/P arthroscopic knee surgery right knee in his 20s and left knee in his 30s. Family History Family History Mother Natural with unknown cause Father Natural with unknown cause Social History Social History Social History: The patient occasionally drinks a glass a wine with dinner. He is a full code. His daughter Iliana is his durable power commercial litigation attorney for healthcare. The patient is a full code. He has a son and a daughter. He is retired. He lives home alone. Smoking status: Never smoker Second hand tobacco smoke exposure: No Alcohol intake: current Drinks per week: 3 Substance use: never Substance use type: does not use Living arrangements: alone Gender identity (if verbalized by the patient): Male Spiritual care concerns: No Meds Home Medications and Allergies Home Medications Medication Instructions Recorded Confirmed Type Eliquis 2.5 mg PO BID 01/18/20 08/11/20 History metoprolol tartrate 12.5 mg PO BID 01/18/20 08/11/20 History tamsulosin 0.4 mg PO QAM 01/18/20 08/11/20 History acetaminophen [Tylenol] 650 mg PO Q6H #90 cap 02/03/20 08/11/20 Rx Allergies Allergy/AdvReac Type Severity Reaction Status Date / Time No Known Allergies Allergy Verified 08/11/20 10:21 Exam Const: General: cooperative and no acute distress HENMT: Head: normal to inspection Eyes: General: appearance normal, both eyes and all related structures Chest: Chest palpation & inspection: normal inspection of the chest Resp: Effort & Inspection: normal respiratory effort Cardio: Rate: regular rate Rhythm: regular rhythm GI: Inspection: normal to inspection Assessment and Plan Assessment and plan (1) Adenocarcinoma of prostate: Code(s): C61 - Malignant neoplasm of prostate Status: Acute Assessment and Plan: Proceed with robotic assist nerve sparing prostatectomy with possible PLND
--- NOTE | 2020-08-21 08:52 | WPDHPUPDATE1 ---
History and Physical Update Update Date/Time: 08/21/20 08:52 History and Physical has been reviewed, including an updated exam of the patient. There are NO changes in the patient's condition. Risks, benefits, and alternatives have been discussed and questions answered. Patient agrees to proceed with procedure. Robotic assist nerve sparing prostatectomy with possible plnd
[2020-08-21] MEDS: LACTATED RINGERS 1,000 ML 30 ML IV CONT ×2 (09:23→15:22)
--- NOTE | 2020-08-21 09:31 | P.PNAN_ITS ---
Anes - Initial Pre Proc Eval Procedure: Operation Date: 08/21/20 11:00 Proposed Procedures p Robotic Assisted Nerve Sparing Prostatectomy, Possible Bilateral Pelvic Lymph Node Dissection - Landon Mcduffie MD Date/Time: 08/21/20 09:31 Surgeon: Landon Mcduffie MD Pre Op Diagnosis: prostate CA Patient Data Age: 70 Gender: M Height: 5 ft 10 in Weight: 84.3 kg Allergies Allergy/AdvReac Type Severity Reaction Status Date / Time No Known Allergies Allergy Verified 08/21/20 09:06 Home Medications Medication Instructions Recorded Confirmed Type Eliquis 2.5 mg PO BID 01/18/20 08/21/20 History metoprolol tartrate 12.5 mg PO BID 01/18/20 08/21/20 History tamsulosin 0.4 mg PO QAM 01/18/20 08/21/20 History acetaminophen [Tylenol] 650 mg PO Q6H #90 cap 02/03/20 08/21/20 Rx Laboratory Tests 08/11/20 10:44 Enhanced Crossmatch See Detail Patient hx anesthesia problems: none Family hx anesthesia problems: none [facility] Past Medical History Medical History Atrial fibrillation chronically on Eliquis. The patient stated that he only had 1 bout about 2 and half years ago and has not been in AFib since. BPH (benign prostatic hyperplasia) History of atrial fibrillation Surgical History Surgical History H/O colonoscopy with polypectomy H/O umbilical hernia repair History of total left knee replacement today 02/02/2020 S/P arthroscopic knee surgery right knee in his 20s and left knee in his 30s. Family History Family History Mother Natural with unknown cause Father Natural with unknown cause Social History Social History Social History: The patient occasionally drinks a glass a wine with dinner. He is a full code. His daughter Iliana is his durable power insurance defense attorney for healthcare. The patient is a full code. He has a son and a daughter. He is retired. He lives home alone. Smoking status: Never smoker Second hand tobacco smoke exposure: No Alcohol intake: current Drinks per week: 3 Substance use: never Substance use type: does not use Living arrangements: alone Gender identity (if verbalized by the patient): Male Spiritual care concerns: No Anes - Eval Final PreProcedure Day of Procedure 08/21/20 09:31 Patient weight: overweight Heart: regular rate and rhythm Lungs: clear to auscultation Airway: Mallampati scale class II Neurological: alert and oriented Last oral intake: >/= 8 hours ASA classification: III Emergent: no Anesthetic plan: proceed Anesthesia type and monitoring: general ETT and standard monitoring Informed Consent: The patient's anesthetic plan and its attendant risks and benefits were discussed with the patient/family/POA. Questions were solicited and answers provided to the satisfaction of the patient/family/POA.
[2020-08-21] MEDS: ceFAZolin 2 GM/D5W 50 ML 2 GM/50 ML BAG IVPB (10:53)
[2020-08-21] MEDS: BUPIVACAINE HCL 0.5% PF 30 ML VIAL INFILTRATE (11:40)
[2020-08-21] MEDS: ceFAZolin SODIUM 1 GM VIAL IV PUSH (14:39)
--- NOTE | 2020-08-21 14:57 | PM.PROC ---
Procedure Note - Detailed Date of procedure: 08/21/20 Pre-op diagnosis: prostate CA Post-op diagnosis: same Procedure performed: Robotic assisted nerve-sparing prostatectomy with right pelvic lymph node dissection Description of procedure: Patient is taken the operative suite and correctly identified. Once anesthesia was obtained he is placed in a low lying dorsal lithotomy position. He was prepped and draped usual sterile fashion. Sixteen Macanese Ramirez was inserted with 15 cc in the balloon. Supraumbilical incision was then made carried down to the rectus fascia. Veress needle was inserted in the abdomen was insufflated to 15 mmHg pressure. Camera port was placed under direct vision. Other working ports were placed in their standard locations. Patient was placed in steep Trendelenburg position and the robot was docked. Patient quite a bit of adhesions along the left sigmoid colon area. These were taken down. Posterior approach was then performed. Seminal vesicles were dissected out in their entirety. Vas was transected. Plane between the prostate and rectum was developed. Bladder was then taken down in space of Retzius was developed. Puboprostatic so for incised. Dorsal venous complex was isolated using 0 Vicryl secured to the pubic bone. Anterior bladder neck was then opened. Bladder neck sparing procedure was performed. Posterior bladder neck was then transected. The plane that had developed prior was entered. Seminal vesicles and vas were isolated again. Pedicles were hemoclipped. Bilateral nerve-sparing was performed standard fashion. The dorsal venous complex was transected. Urethra was transected. The right pelvic lymph node dissection was then performed with the boundaries being the external iliac vein , coopers ligament, obturator nerve and bifurcation. Clips were placed proximally and distally. These specimens were then placed in an Endo-Catch bag. A Boo stitch was then placed using 0 Vicryl. Bladder neck was then anastomosed to the urethral good approximation mucosa using a V lock suture in a running fashion. Sixteen Macanese Ramirez was placed with 10 cc in the balloon. The bladder was filled with 150 cc sterile water. There is no evidence of extravasation at this time the Ramirez irrigated well. A Hubert drain was then brought out through the 3rd arm port site. This was secured. The robot was undocked. Specimen was brought out through the midline incision. 0 Vicryl was used to close the rectus fascia. Three O chromic to bury the knots. And a subcuticular stitches were then placed. All lap, needle count sponge counts were correct. Patient is taken recovery stable condition. Anesthesia: GETA Surgeon: Landon Mcduffie MD Drains: Yes Packing: No Pathology: yes Complications: No immediate complications Condition: stable Disposition: PACU
--- NOTE | 2020-08-21 15:46 | SUR.PHASEI ---
O2 removed at 1547
[2020-08-21] MEDS: METOPROLOL TARTRATE 12.5 MG TABLET PO (17:55)
[2020-08-21] MEDS: LACTATED RINGERS 1,000 ML 125 ML IV CONT (17:56)
[2020-08-21] MEDS: KETOROLAC 15 MG/ML VIAL (*BKC) IV PUSH (17:56)
--- NOTE | 2020-08-21 18:22 | ADMGEN ---
This patient, Brian Renee, was admitted to 2 Medical Room 250-01. Patient/family oriented to hospital policies and general routines including ID bracelet, bed and alarms, visiting hours, pain management, procedures, bathroom and other care routines, personal items, smoking policy, room service/diet, and visiting hours. Information on how to activate the Rapid Response Team has been discussed. Patient/Family are encouraged to report perceived risks to care and to ask questions if they do not understand what they are told or what they should do.
[2020-08-21] MEDS: HYDROcodone/acetaminophen (*CRX) 5-325 MG TABLET 1 TAB PO (20:41)
[2020-08-22] VITALS (8 sets, daily range): BP systolic 112–142; BP diastolic 57–70; PULSE 59–80; RESP 14–21; TEMP 36.2–37.1; O2SAT 98–100
[2020-08-22] MEDS: HYDROcodone/acetaminophen (*CRX) 5-325 MG TABLET 1 TAB PO ×3 (00:44→18:23)
[2020-08-22 05:32] LABS: Hematocrit 33.1 % (42.0-52.0); Hemoglobin 10.9 g/dL (14.0-18.0)
[2020-08-22 06:14] LABS: Anion Gap 2 mmol/L (8-16); Blood Urea Nitrogen 11 mg/dL (9-20); Calcium 8.1 mg/dL (8.4-10.2); Carbon Dioxide 28 mmol/L (22-30); Chloride 104 mmol/L (98-107); Estimated CRCL calculation 78 ml/min; Estimated Glomerular Filt Rate > 60; Glucose 101 mg/dL (75-110); Potassium 4.2 mmol/L (3.4-5.0); Sodium 134 mmol/L (137-145)
--- NOTE | 2020-08-22 07:18 | WPDUROPN2 ---
Progress Note: A&P Assessment and Plan (1) Adenocarcinoma of prostate: Code(s): C61 - Malignant neoplasm of prostate Status: Acute Assessment and Plan: Doing well at this time. Increase activity. Re-evaluate SHAY output at lunchtime. Minimal removed SHAY and possibly discharge home with Ramirez catheter later today. Subjective Subjective Date/Time Seen: 08/22/20 07:18 Post Op day: 1 Principal diagnosis: Adenocarcinoma of the prostate Interval history: doing well postoperative day 1. No major complaints. SHAY with minimal output at this time. Review of Systems Review of Systems: All systems reviewed & are unremarkable except as noted in HPI and below Exam Const: General: cooperative, comfortable and no acute distress Chest: Chest palpation & inspection: normal inspection of the chest Resp: Effort & Inspection: normal respiratory effort Cardio: Rate: regular rate Rhythm: regular rhythm GI: GI Palp: Yes Soft to palpation Urinary Catheter: Urinary Catheter: patent and draining and urine clear Objective Data Vital Signs Vital Signs: Vital Signs - 24 hr 08/21/20 15:22 08/21/20 15:35 08/21/20 15:50 Temperature 36.7 C Pulse Rate 94 65 67 Respiratory Rate 15 20 20 Blood Pressure 128/66 124/62 127/71 Pulse Oximetry 100 100 98 08/21/20 16:05 08/21/20 16:20 08/21/20 16:35 Temperature Pulse Rate 67 68 66 Respiratory Rate 18 24 H 20 Blood Pressure 138/67 141/68 H 148/76 H Pulse Oximetry 98 100 98 08/21/20 16:40 08/21/20 16:55 08/21/20 17:25 Temperature 36.2 C L 36.3 C L 36.3 C L Pulse Rate 70 71 70 Respiratory Rate 16 16 16 Blood Pressure 139/69 137/79 135/64 Pulse Oximetry 100 100 70 L 08/21/20 17:55 08/21/20 18:00 08/21/20 20:00 Temperature 36.4 C Pulse Rate 84 71 71 Respiratory Rate 16 16 Blood Pressure 132/64 Pulse Oximetry 100 100 08/21/20 22:00 08/22/20 02:00 08/22/20 06:00 Temperature 36.1 C L 36.4 C L 36.3 C L Pulse Rate 76 69 61 Respiratory Rate 21 H 21 H 20 Blood Pressure 129/68 112/65 138/68 Pulse Oximetry 100 100 99 Intake/Output Intake/Output: Intake & Output 08/19/20 08/20/20 08/21/20 08/22/20 23:59 23:59 23:59 23:59 Intake Total 600 1900 Output Total 295 1100 Balance 305 800 Meds/Results Medications: Active Medications Generic Name Dose Route Start Last Admin Trade Name Freq PRN Reason Stop Dose Admin Hydrocodone Bitart/Acetaminophen 1 tab 08/21/20 16:40 08/22/20 06:29 Hydrocodone/Acetaminophen (*Crx) 5-325 Mg Tablet PO 1 tab Q6H PRN Administration Pain Rated 1-3 Hydrocodone Bitart/Acetaminophen 2 tab 08/21/20 16:40 Hydrocodone/Acetaminophen (*Crx) 5-325 Mg Tablet PO Q6H PRN Pain Rated 4-6 Docusate Sodium 100 mg 08/21/20 17:00 08/21/20 17:56 Docusate Sodium 100 Mg Capsule PO Not Given BID RUPAL Hyoscyamine 0.125 mg 08/21/20 16:40 Hyoscyamine Sulfate 0.125 Mg Tablet SUBLINGUAL Q4H PRN Bladder Spasm Lactated Ringer's 1,000 mls @ 125 mls/hr 08/21/20 16:40 08/22/20 01:00 Lr - Lactated Ringers Iv IV CONT Infused .Q8H RUPAL Infusion Ketorolac Tromethamine 15 mg 08/21/20 16:40 08/21/20 17:56 Ketorolac 15 Mg/Ml Vial (*Bkc) IV PUSH 08/22/20 16:41 15 mg Q6H PRN Administration Pain Rated 4-6 Levofloxacin 500 mg 08/22/20 09:00 Levofloxacin Tab 500 Mg Tablet PO DAILY RUPAL Metoprolol Tartrate 12.5 mg 08/21/20 17:00 08/21/20 17:55 Metoprolol Tartrate 12.5 Mg Tablet PO 12.5 mg BID RUPAL Administration Morphine Sulfate 1 mg 08/21/20 16:40 Morphine Sulfate (*Crx) 2 Mg/Ml Inj IV PUSH Q2H PRN Pain Rated 7-10 Naloxone HCl 0.1 mg 08/21/20 16:40 Naloxone Hcl 0.4 Mg/Ml Vial IV PUSH Q2M PRN Opiate Reversal Ondansetron HCl 4 mg 08/21/20 16:40 Ondansetron Inj 4 Mg/2 Ml Vial IV PUSH Q6H PRN Nausea And Vomiting Labs Labs: Laboratory Results - last 24 hr 08/22/20 08/22/20 04:
[2020-08-22] MEDS: DOCUSATE SODIUM 100 MG CAPSULE PO ×2 (09:12→16:37)
[2020-08-22] MEDS: METOPROLOL TARTRATE 12.5 MG TABLET PO ×2 (09:12→16:37)
[2020-08-22] MEDS: KETOROLAC 15 MG/ML VIAL (*BKC) IV PUSH ×2 (09:20→15:33)
[2020-08-22] MEDS: HYDROcodone/acetaminophen (*CRX) 5-325 MG TABLET 2 TAB PO ×2 (12:37→23:02)
--- NOTE | 2020-08-22 13:42 | WPDANESPN ---
Anes - Prog Note Post-Op Date/Time: 08/22/20 13:42 Cardiovascular status: normal Respiratory status: normal Airway patency: baseline Mental status: baseline Post-Op hydration status: normal Vital Signs: Last Vital Signs Temp 36.3 C L 08/22/20 10:00 Pulse 68 08/22/20 10:00 Resp 18 08/22/20 10:00 BP 130/62 08/22/20 10:00 Pulse Ox 98 08/22/20 10:00 Pain Score (VAS): 0 I/O: Intake & Output 08/21/20 08/22/20 08/22/20 23:59 07:59 15:59 Intake Total 600 1900 700 Output Total 220 1100 110 Balance 380 800 590 Laboratory Tests 08/22/20 04:51 08/22/20 04:52 08/22/20 08/22/20 04:51 04:52 Hgb 10.9 L D Hct 33.1 L Sodium 134 L Potassium 4.2 Chloride 104 Carbon Dioxide 28 Anion Gap 2 L BUN 11 Creatinine 0.80 Estim Creat Clear Calc 78 Estimated GFR > 60 Glucose 101 Calcium 8.1 L Post-procedural complaints: none Patient Feedback: Patient satisfied with anesthetic care.
[2020-08-23] VITALS (7 sets, daily range): BP systolic 118–130; BP diastolic 58–66; PULSE 66–82; RESP 14–20; TEMP 36.3–37.1; O2SAT 98–100
--- NOTE | 2020-08-23 07:51 | WPDUROPN2 ---
Progress Note: A&P Assessment and Plan (1) Adenocarcinoma of prostate: Code(s): C61 - Malignant neoplasm of prostate Status: Acute Assessment and Plan: Doing better at this time. Most likely discharged at lunch time. We will see which SHAY output is this shift and make a decision regarding removal prior to discharge. Catheter cystogram next week with follow-up Subjective Subjective Date/Time Seen: 08/23/20 07:51 Post Op day: 2 Principal diagnosis: Adenocarcinoma of prostate Interval history: Brian feels better this morning. Most likely discharged at lunch time. Exam Const: General: cooperative and comfortable Resp: Effort & Inspection: normal respiratory effort Cardio: Rate: regular rate Rhythm: regular rhythm GI: GI Palp: No abdominal tenderness and Yes Soft to palpation Objective Data Vital Signs Vital Signs: Vital Signs - 24 hr 08/22/20 09:12 08/22/20 10:00 08/22/20 14:00 Temperature 36.3 C L 36.2 C L Pulse Rate 68 68 59 L Respiratory Rate 18 20 Blood Pressure 130/62 113/70 Pulse Oximetry 98 100 08/22/20 16:37 08/22/20 18:00 08/22/20 22:00 Temperature 36.7 C 37.1 C Pulse Rate 80 63 61 Respiratory Rate 14 21 H Blood Pressure 116/57 L 142/62 H Pulse Oximetry 99 100 08/23/20 02:00 08/23/20 06:00 Temperature 36.6 C 36.7 C Pulse Rate 66 73 Respiratory Rate 20 20 Blood Pressure 128/66 125/65 Pulse Oximetry 98 98 Intake/Output Intake/Output: Intake & Output 08/20/20 08/21/20 08/22/20 08/23/20 23:59 23:59 23:59 23:59 Intake Total 600 3450 1050 Output Total 295 1680 1865 Balance 305 1770 -815 Meds/Results Medications: Active Medications Generic Name Dose Route Start Last Admin Trade Name Freq PRN Reason Stop Dose Admin Hydrocodone Bitart/Acetaminophen 1 tab 08/21/20 16:40 08/22/20 18:23 Hydrocodone/Acetaminophen (*Crx) 5-325 Mg Tablet PO 1 tab Q6H PRN Administration Pain Rated 1-3 Hydrocodone Bitart/Acetaminophen 2 tab 08/21/20 16:40 08/22/20 23:02 Hydrocodone/Acetaminophen (*Crx) 5-325 Mg Tablet PO 2 tab Q6H PRN Administration Pain Rated 4-6 Docusate Sodium 100 mg 08/21/20 17:00 08/22/20 16:37 Docusate Sodium 100 Mg Capsule PO 100 mg BID RUPAL Administration Hyoscyamine 0.125 mg 08/21/20 16:40 Hyoscyamine Sulfate 0.125 Mg Tablet SUBLINGUAL Q4H PRN Bladder Spasm Levofloxacin 500 mg 08/22/20 09:00 08/22/20 09:12 Levofloxacin Tab 500 Mg Tablet PO 500 mg DAILY RUPAL Administration Metoprolol Tartrate 12.5 mg 08/21/20 17:00 08/22/20 16:37 Metoprolol Tartrate 12.5 Mg Tablet PO 12.5 mg BID RUPAL Administration Morphine Sulfate 1 mg 08/21/20 16:40 Morphine Sulfate (*Crx) 2 Mg/Ml Inj IV PUSH Q2H PRN Pain Rated 7-10 Naloxone HCl 0.1 mg 08/21/20 16:40 Naloxone Hcl 0.4 Mg/Ml Vial IV PUSH Q2M PRN Opiate Reversal Ondansetron HCl 4 mg 08/21/20 16:40 Ondansetron Inj 4 Mg/2 Ml Vial IV PUSH Q6H PRN Nausea And Vomiting
[2020-08-23] MEDS: DOCUSATE SODIUM 100 MG CAPSULE PO (08:28)
[2020-08-23] MEDS: METOPROLOL TARTRATE 12.5 MG TABLET PO ×2 (08:28→16:49)
[2020-08-23] MEDS: HYDROcodone/acetaminophen (*CRX) 5-325 MG TABLET 1 TAB PO (08:35)
--- NOTE | 2020-08-23 12:23 | PM.DS ---
DS: Admitting Diagnosis Admitting Diagnosis Admitting Diagnosis: Prostate Cancer DS: Discharge Diagnosis Discharge Diagnosis (1) Adenocarcinoma of prostate: Code(s): C61 - Malignant neoplasm of prostate Status: Acute DS: Summary Hospital Course Hospital Course: See below Time Spent with Patient Time attestation: Patient underwent a Robotic assisted nerve-sparing prostatectomy with right pelvic lymph node dissection with Dr. Bg Mcduffie on 08/21/2020. He tolerated the procedure well, went to recovery in stable condition, then to the floor for further observation. He did well post operatively, but was in pain on day one and wasn't able to ambulate as much. He did tolerate diet and denied nausea. He is now tolerating pain and more ambulatory. SHAY drain is draining less at this time, therefore will be removed. His saavedra will stay in until his Cystogram. He will resume diet as tolerated, activity no straining or driving. Keep incisions open to air, cover SHAY drain incision with a clean dry dressing daily and PRN. Resume all pevious home medications except Eliquis which should be held until Friday to prevent post op bleeding with activity at home. He should also not take Tylenol with Hydrocodone. Exam Resp: Effort & Inspection: normal respiratory effort Cardio: Rate: regular rate GI: GI Palp: Yes Soft to palpation and No Tenderness to palpation present (GI) : General: Yes no CVA tenderness Urinary Catheter: Urinary Catheter: urine clear Extrem: General: no edema DS: Data Data Completed and Pending Pending studies at discharge: Pending at discharge 08/21/20 13:03 Surgical [PTH] Routine Surgical [PTH] Routine Discharge Plan Discharge Attending physician on discharge: Landon Mcduffie Discharging Clinician: Terri Mendoza Anticipated Discharge Date/Time: 08/23/20 14:30 Patient Disposition: Home, Self-Care Activity: may shower, no driving and as tolerated Diet: as tolerated Wound Care Instructions: incision open to air Discharge Instructions: Follow up for Cystogram on , then immediately to the office following the Cystogram for catheter removal. Call the office if you develop grossly bloody urine, fever of >102. Urine may remain pink at times with activity. Patient Instructions: Aj-Isbell Drain Care (GEN), Robot Assisted Laparoscopic Prostatectomy (DC) Stand Alone Forms: General Discharge Instructions Follow-up/Referrals: Landon Mcduffie MD [Physician] - Discharge Medications: New hydrocodone-acetaminophen 5-325 mg tablet 1 tablet PO Q8H PRN (Reason: pain) Qty: 20 RF: 0 docusate sodium 100 mg Capsule 100 mg PO BID 10 Days Qty: 20 RF: 0 hyoscyamine sulfate [Anaspaz] 0.125 mg Tablet,Disintegrating 0.125 mg sublingual Q4H PRN (Reason: Bladder Spasm) Qty: 20 RF: 0 sulfamethoxazole-trimethoprim [Bactrim DS] 800-160 mg tablet 1 tablet PO DAILY Qty: 5 RF: 0 Continued tamsulosin 0.4 mg Capsule 0.4 mg PO QAM RF: 0 metoprolol tartrate 25 mg Tablet 12.5 mg PO BID RF: 0 Held Eliquis 5 mg Tablet 2.5 mg PO BID RF: 0 Hold Instructions: Resume on 02/09/20. acetaminophen [Tylenol] 325 mg capsule 650 mg PO Q6H Qty: 90 RF: 0 Hold Instructions: Resume on 09/01/20. DO not take with Hydrocodone, may take only if not taking Hydrocodone for pain. Date of admission: 08/22/20 14:55 Primary Care Provider: Lamar Harry Admitting Provider: Landon Mcduffie Attending physician on admission: Landon Mcduffie Condition: Improved
--- NOTE | 2020-08-23 14:03 | PC.NURSE ---
On 08/23/20, the student, [Rosa Davis ], provided care and completed [facility] documentation on this patient. I have reviewed the student's documentation and agree with the findings.
--- NOTE | 2020-08-23 14:36 | PM.DS ---
DS: Admitting Diagnosis Admitting Diagnosis Admitting Diagnosis: Prostate Cancer DS: Discharge Diagnosis Discharge Diagnosis (1) Adenocarcinoma of prostate: Code(s): C61 - Malignant neoplasm of prostate Status: Acute DS: Summary Hospital Course Hospital Course: See below Time Spent with Patient Time attestation: Patient underwent a Robotic assisted nerve-sparing prostatectomy with right pelvic lymph node dissection with Dr. Bg Mcduffie on 08/21/2020. He tolerated the procedure well, went to recovery in stable condition, then to the floor for further observation. He did well post operatively, but was in pain on day one and wasn't able to ambulate as much. He did tolerate diet and denied nausea. He is now tolerating pain and more ambulatory. SHAY drain is draining less at this time, therefore will be removed. His saavedra will stay in until his Cystogram. He will resume diet as tolerated, activity no straining or driving. Keep incisions open to air, cover SHAY drain incision with a clean dry dressing daily and PRN. Resume all pevious home medications except Eliquis which should be held until Friday to prevent post op bleeding with activity at home. He should also not take Tylenol with Hydrocodone. Exam Resp: Effort & Inspection: normal respiratory effort Cardio: Rate: regular rate GI: GI Palp: Yes Soft to palpation, No Tenderness to palpation present (GI) and Yes Other GI palpation findings present (SHAY drain site is dry and clean, draining bloody drainage.) : General: Yes no CVA tenderness Urinary Catheter: Urinary Catheter: patent and draining and urine clear Extrem: General: no edema DS: Data Data Completed and Pending Pending studies at discharge: Pending at discharge 08/21/20 13:03 Surgical [PTH] Routine Surgical [PTH] Routine Discharge Plan Discharge Attending physician on discharge: Landon Mcduffie Discharging Clinician: Terri Mendoza Anticipated Discharge Date/Time: 08/23/20 14:30 Patient Disposition: Home, Self-Care Activity: may shower, no driving and as tolerated Diet: as tolerated Wound Care Instructions: incision open to air Discharge Instructions: Follow up for Cystogram on , then immediately to the office following the Cystogram for catheter removal. Call the office if you develop grossly bloody urine, fever of >102. Urine may remain pink at times with activity. Patient Instructions: Aj-Isbell Drain Care (GEN), Robot Assisted Laparoscopic Prostatectomy (DC) Stand Alone Forms: General Discharge Instructions Follow-up/Referrals: Landon Mcduffie MD [Physician] - Discharge Medications: New hydrocodone-acetaminophen 5-325 mg tablet 1 tablet PO Q8H PRN (Reason: pain) Qty: 20 RF: 0 docusate sodium 100 mg Capsule 100 mg PO BID 10 Days Qty: 20 RF: 0 hyoscyamine sulfate [Anaspaz] 0.125 mg Tablet,Disintegrating 0.125 mg sublingual Q4H PRN (Reason: Bladder Spasm) Qty: 20 RF: 0 sulfamethoxazole-trimethoprim [Bactrim DS] 800-160 mg tablet 1 tablet PO DAILY Qty: 5 RF: 0 Continued tamsulosin 0.4 mg Capsule 0.4 mg PO QAM RF: 0 metoprolol tartrate 25 mg Tablet 12.5 mg PO BID RF: 0 Held Eliquis 5 mg Tablet 2.5 mg PO BID RF: 0 Hold Instructions: Resume on 02/09/20. acetaminophen [Tylenol] 325 mg capsule 650 mg PO Q6H Qty: 90 RF: 0 Hold Instructions: Resume on 09/01/20. DO not take with Hydrocodone, may take only if not taking Hydrocodone for pain. Date of admission: 08/22/20 14:55 Primary Care Provider: Lamar Harry Admitting Provider: Landon Mcduffie Attending physician on admission: Landon Mcduffie Condition: Improved
[2020-08-23] MEDS: HYDROcodone/acetaminophen (*CRX) 5-325 MG TABLET 2 TAB PO (15:22)
--- NOTE | 2020-08-23 16:50 | PC.NURSE ---
Reviewed use of saavedra leg bag with patient and demonstrated switching large drainage bag to leg bag. Patient verbalized understanding. Also instructed patient on proper care of saavedra catheter and use of large drainage bag and demonstrated emptying of both bags and clamping of both bags. Instructed patient on when to call the doctor and/or return to the ER. Patient and daughter received instructions and verbalized understanding. Sent patient home with additional dressings for SHAY drain site (where drain was removed), large catheter drainage bag, urinal for emptying catheters and extra stabilization device.
== END 2020-08-23 17:00 | disposition home or self-care (01) ==
LOC: ANHSURGERY 15:00 → ANH2MED 15:00
PROVIDERS: Admitting Provider Urology; PCP Internal Medicine; Visit Provider Urology
PROC: 0VT04ZZ Resection of Prostate, Percutaneous Endoscopic Approach (ICD-10-PCS; CPT 55867; principal; 2020-08-21 11:00)
DX: C61 Malignant neoplasm of prostate (principal)
CPT/HCPCS: 55866; 38571; S2900; 36415; 80048; 85014; 85018; 86922; 88305; 88307; 88309; A9270; G0378; J0690; J1100; J1170; J1885; J2405; J2704; J2710; J3010; J7030; J7120

== ENCOUNTER 2020-08-30 09:00 | Outpatient (CLI) | payer MEDICARE, SELFPAY ==
--- NOTE | ~2020-08-30 | XR_ITS ---
EXAMINATION: XR cystogram EXAM DATE: 08/30/2020 09:53 INDICATION: Prostate cancer. Prostatectomy. TECHNIQUE: Fluoroscopic guidance used during cystogram performed by Dr. Liu Velazquez, radiologist, thr [facility] Ramirez catheter in place on patient arrival. An Omnipaque 350/saline solution was used and allowe d to infuse through the Ramirez catheter under gravity. Senior Quantity Surveyor image, fluoroscopic images and postevacua tion image were obtained. Total fluoroscopic time of 0.2. The DAP for this procedure was 23 mGym2. A total of 15 images obtained for the exam. There is no prior study for comparison. FINDINGS: Senior Quantity Surveyor image is unremarkable. Patient tolerated approximately 250 milliliters of distention. There was no contrast extravasation. No ureteral reflux. Oblique projections also demonstrated no e vidence of extravasation. For post void imaging, patient's Ramirez catheter drained into the bag which administered contrast. Ini tial images demonstrated that about 70 % of the contrast we administered remained in the bladder. We then hooked him back up to his Ramirez bag and had him stand/walk for 5 minutes, and then tried to aspi rate the Ramirez catheter. After both of these maneuvers approximately 60% of the administered contrast remained in the bladder. Additional attempted aspiration did not yield any urine/contrast. IMPRESSION: 1. No contrast extravasation. 2. High residual, with about 60% of administered contrast remaining in the bladder in spite of maneu vering, aspiration attempts. Tip could have some adjacent blood clot or be against wall of the bladde r? Reviewed, dictated and finalized at location A. IMPRESSION: 1. No contrast extravasation. 2. High residual, with about 60% of administered contrast remaining in the tessy dder in spite of maneuvering, aspiration attempts. Tip could have some adjacent blood clot or be against wall of the bladder?
== END 2020-08-30 09:01 | disposition home or self-care (01) ==
LOC: ANHIMG 09:02
PROVIDERS: PCP Internal Medicine; Visit Provider Urology
DX: C61 Malignant neoplasm of prostate (principal); R93.41 Abnormal radiologic findings on diagnostic imaging of renal pelvis, ureter, or bladder
CPT/HCPCS: 51600; 74430; Q9967

== ENCOUNTER 2020-10-25 07:49 | Outpatient (CLI) | payer MEDICARE, SELFPAY ==
[2020-10-25 07:57] LABS: Add Urine Microscopic? NO; Appearance Urine Clear (Clear); Bilirubin Urine Negative (Negative); Blood Urine Negative (Negative); Color Urine Light Yellow (Yellow); Glucose Urine UA Negative (Negative); Ketones Urine Negative (Negative); Leukocyte Esterase Ur Negative (Negative); Nitrate Urine Negative (Negative); Protein Urine Negative (Negative); Specific Grav Ur 1.015 (1.010-1.020); Urobilinogen Urine 0.2 mg/dL (0.2-1.0); pH Urine 6.5 (5.0-8.0)
[2020-10-25 08:10] LABS: Hemoglobin A1C 5.4 % (<5.7)
[2020-10-25 08:48] LABS: Alanine Aminotransferase 32 U/L (16-63); Albumin Level 3.5 g/dL (3.4-5.0); Alkaline Phosphatase 103 U/L (46-116); Anion Gap 9 mmol/L (8-16); Aspartate Amino Transferase 17 U/L (15-37); Bilirubin,Total 0.4 mg/dL (0.00-1.00); Blood Urea Nitrogen 13 mg/dL (7-18); Calcium 9.3 mg/dL (8.5-10.1); Carbon Dioxide 29 mmol/L (21-32); Chloride 103 mmol/L (98-108); Cholesterol 210 mg/dL (0-200); Estimated Glomerular Filt Rate > 60; Glucose 111 mg/dL (70-99); HDL Direct 62 mg/dL (40-60); LDL Cholesterol Calculated 122 mg/dL (<130); Osmolality Calculated 293 mOsm/kg (285-295); Potassium 4.5 mmol/L (3.5-5.1); Sodium 141 mmol/L (136-145); Total Protein 6.3 g/dL (6.4-8.2); Triglycerides 132 mg/dL (0-150)
== END 2020-10-25 07:50 | disposition home or self-care (01) ==
LOC: CHSLAB 07:50
PROVIDERS: PCP Internal Medicine; Visit Provider Internal Medicine
DX: R73.01 Impaired fasting glucose (principal); I10 Essential (primary) hypertension; E78.2 Mixed hyperlipidemia
CPT/HCPCS: 36415; 80053; 80061; 81003; 83036

== ENCOUNTER 2021-03-09 08:53 | Outpatient (CLI) | payer MEDICARE, SELFPAY ==
--- NOTE | 2021-03-09 09:00 | ECG_ITS ---
Measurements Intervals [place] Rate: 71 P: 46 TX: 155 QRS: -9 QRSD: 102 T: 17 QT: 381 QTc: 415 Interpretive Statements SINUS RHYTHM WITH SINUS ARRHYTHMIA DELAYED PRECORDIAL R/S TRANSITION BORDERLINE ECG Electronically Signed On 03-09-2021 9:16:00 CDT by Main Phelps D.O.
== END 2021-03-09 08:54 | disposition home or self-care (01) ==
LOC: ANHSURGERY 08:57
PROVIDERS: PCP Internal Medicine; Visit Provider Surgery
DX: K40.90 Unilateral inguinal hernia, without obstruction or gangrene, not specified as recurrent (principal); I48.91 Unspecified atrial fibrillation; Z01.818 Encounter for other preprocedural examination; R94.31 Abnormal electrocardiogram [ECG] [EKG]
CPT/HCPCS: 36415; 86850; 86880; 86900; 86901; 93005

== ENCOUNTER 2021-03-13 00:26 | Day surgery (SDC) | payer MEDICARE, SELFPAY ==
[2021-03-08 09:03] VITALS: BMI 26.6
--- NOTE | 2021-03-08 09:12 | PC.NURSE ---
Report to the Outpatient Waiting Room, entrance under the green pavilion located off [facility], at time _1000__ on date 03/13/21 . OR Time: _1200__. - You and your visitor will be asked a series of questions to screen for COVID 19 for your protection. - A mask is required within the hospital. - Only one visitor is allowed at this time. Patient visitors will be guided where to wait when not with patient. Preoperative COVID Testing Requirements: No COVID Test needed if: (proof is required; if not received patient will have Rapid Test prior to entry) - Patient has received COVID Vaccine at least 14 days prior to procedure date or - Patient has positive COVID test result within last 90 days of surgery date. COVID Test needed if above criteria is not met If not COVID vaccinated a COVID test must be conducted within 72 hours of surgery and patient is asked to isolate self from time of testing until procedure. You will go to the [facility] for your COVID testing. The [facility] is located at the corner of [address] [facility]. You will only be called if COVID results are positive and your surgeon may reschedule your elective surgery date. Patients may have clear liquids (water, carbonated beverages, clear teas, apple juice) until 3 hours prior to surgery with a maximum of 20 ounces. - No food from midnight until time of surgery - Infants may have breast milk until 4 hours before surgery, infant formula 6 hours prior to surgery. - Children will be allowed to drink immediately following surgery. If applicable, please bring a bottle or sippy cup to assist with drinking. Juice, water, soda, and popsicles are readily available. For infants on formula, please bring formula the day of surgery. Pacifiers are allowed. Take the following medications with a SIP of water the morning of surgery: _METOPROLOL____ Medications to discontinue per physician __ELIQUIS - 2 DAYS PRIOR TO SURGERY Date to take last dose__03/10/21 Please no make-up, nail namibian, hairspray, perfume, deodorant, or body powder the day of surgery. No jewelry (including any body piercings) or valuables the day of surgery, leave them at home. Please take a shower or bath the night before, or the morning of, surgery with an antibacterial soap. Wear comfortable, loose fitting clothing. Children are encouraged to wear pajamas. - Jewelry must be removed prior to entering the operating room. Rings and piercings that are not removed may be cut off. - The hospital will not accept responsibility for valuables. - Please leave all valuables, including medications, at home the day of surgery. If you are going home after surgery, a licensed trailer driver must drive you home. - NO public transportation without another adult. - We recommend that an adult stay with you for 24 hours following discharge. - We also recommend that you do not drive, make important decision, drink alcoholic beverages, or take any drugs that were not prescribed by your health care provider for at least 24 hours after your discharge time. For Pediatric surgeries, we recommend two adults accompany the child home (only one inside the building at this time). Follow any additional instructions given to you from your surgeon. ABEL CORTEZ AM OF SURGERY Telephone instructions given to __PT___and asked if any additional questions and then verbalized understanding. Patient advised to call surgeon office or pre surgery nurse liaison [phone] if any additional questions.
[2021-03-13] VITALS (8 sets, daily range): BP systolic 142–160; BP diastolic 78–95; PULSE 62–105; RESP 10–16; TEMP 36.2–36.6; O2SAT 97–100; BMI 27.6
[2021-03-13] MEDS: ACETAMINOPHEN 500 MG TABLET 1000 MG PO (10:39)
[2021-03-13] MEDS: LACTATED RINGERS 1,000 ML 30 ML IV CONT ×2 (10:39→14:39)
[2021-03-13] MEDS: KETOROLAC 15 MG/ML VIAL (*BKC) IV PUSH (10:39)
--- NOTE | 2021-03-13 11:06 | P.PNAN_ITS ---
Anes - Initial Pre Proc Eval Procedure: Operation Date: 03/13/21 12:00 Proposed Procedures p Laparoscopic Right Inguinal Hernia Repair with Mesh, Davinci Assisted - German Moses DO Date/Time: 03/13/21 11:06 Surgeon: German Moses DO Pre Op Diagnosis: right inguinal hernia Patient Data Age: 70 Gender: M Height: 1.78 m Weight: 87.2 kg Last Vital Signs Temp 36.6 C 03/13/21 10:28 Pulse 72 03/13/21 10:28 Resp 16 03/13/21 10:28 BP 160/79 H 03/13/21 10:28 Pulse Ox 100 03/13/21 10:28 Allergies Allergy/AdvReac Type Severity Reaction Status Date / Time No Known Allergies Allergy Verified 03/13/21 10:22 Home Medications Medication Instructions Recorded Confirmed Type Eliquis 2.5 mg PO BID 01/18/20 03/13/21 History metoprolol tartrate 12.5 mg PO BID 01/18/20 03/13/21 History Patient hx anesthesia problems: none Family hx anesthesia problems: none Results Review: All pre-operative results and documents have been reviewed as part of the pre-operative evaluation. [facility] Past Medical History Medical History Atrial fibrillation chronically on Eliquis. The patient stated that he only had 1 bout about 2 and half years ago and has not been in AFib since. BPH (benign prostatic hyperplasia) Prostate cancer Surgical History Surgical History H/O colonoscopy with polypectomy H/O umbilical hernia repair History of prostatectomy 12/21/2020 History of total left knee replacement today 02/02/2020 S/P arthroscopic knee surgery right knee in his 20s and left knee in his 30s. S/P cataract surgery Family History Family History Mother Natural with unknown cause Father Natural with unknown cause Daughter No problems noted. Social History Social History Social History: His daughter Shilpa is his durable power trial attorney for healthcare. The patient is a full code. He is retired. He lives home alone. Smoking status: Never smoker Second hand tobacco smoke exposure: No Alcohol intake: current Drinks per week: 3 Substance use: never Substance use type: does not use Living arrangements: alone Gender identity (if verbalized by the patient): Male Spiritual care concerns: No Anes - Eval Final PreProcedure Day of Procedure 03/13/21 11:06 Patient weight: overweight Heart: regular rate and rhythm Airway: Mallampati scale Neurological: alert and oriented Last oral intake: >/= 8 hours ASA classification: III Emergent: no Anesthetic plan: proceed Anesthesia type and monitoring: general ETT and standard monitoring Results Review: All pre-operative results and documents have been reviewed as part of the pre-operative evaluation. Informed Consent: The patient's anesthetic plan and its attendant risks and benefits were discussed with the patient/family/POA. Questions were solicited and answers provided to the satisfaction of the patient/family/POA.
--- NOTE | 2021-03-13 12:16 | WPDHPUPDATE1 ---
History and Physical Update Update Date/Time: 03/13/21 12:16 History and Physical has been reviewed, including an updated exam of the patient. There are NO changes in the patient's condition. Risks, benefits, and alternatives have been discussed and questions answered. Patient agrees to proceed with procedure.
--- NOTE | 2021-03-13 14:42 | W.PM.PROC2 ---
Procedure Note - Detailed Date of Procedure 03/13/21 Pre-op Diagnosis right inguinal hernia Post-op Diagnosis same (Indirect RIH) Procedure Performed Laparoscopic right inguinal hernia repair with mesh, da Mike assisted Surgeon German Moses, Anesthesia general and local (0.5% bupivacaine) Indications 70 yo man presents with right groin pain and a bulge that he first noticed about 1-2 months ago. He was found to have a reducible right inguinal hernia on exam. Discussions were made with the patient about surgical options and decision was made to proceed with robotic assisted laparoscopic right inguinal hernia repair with mesh. Findings Laparoscopic right inguinal hernia repair was performed. Patient was found to have an indirect right inguinal hernia. there was scarring near Mlaik's ligament from his previous robotic prostatectomy. He also had a large right cord lipoma. The cord lipoma was reduced along with the hernia sac. A robotic transabdominal preperitoneal approach was utilized. Once a preperitoneal pocket was created in the hernia sac was reduced, placed a large right Bard 3DMax mid mesh overlying the entire right myopectineal orifice. No specimens were obtained for pathology. Description of Procedure Procedure as well as risks, benefits, and alternatives were discussed with the patient. Written consent was obtained and placed in chart prior to procedure. Patient was brought back to surgical suite. He was placed supine on operating table. Time-out was done to confirm patient and procedure. He was then intubated by Anesthesia Department. His abdomen was prepped and draped in sterile fashion using chlorhexidine prep. 0.5% bupivacaine with epinephrine was infiltrated at each location for incision. An 8 mm incision was made in the left lateral abdomen, and a 5 mm Optiview trocar was advanced through the abdominal layers under direct visualization. Once inside the abdominal cavity, carbon dioxide insufflation was used to create a pneumoperitoneum. A camera was inserted and the abdominal cavity was inspected. The patient was placed in slight Trendelenburg position. An 8 millimeter incision was made on the right lateral abdomen and an 8 millimeter trocar was inserted under direct visualization. Another 8 millimeter incision was made just superior to the umbilicus and an 8 millimeter trocar was inserted under direct visualization. The 5 mm port was then removed and this was replaced with another 8 mm robotic port. The robotic arms were brought up to the patient's bedside and secured to the ports. The camera and instruments were inserted. I then moved over to the robotic console and took control of the camera and instruments. After careful inspection of the abdominal cavity, I began scoring the peritoneum along the [] lower quadrant using scissors with electrocautery. The preperitoneal plane was entered and this was carefully dissected caudally along the inferior epigastric vessels. Careful dissection with scissors with electrocautery and blunt dissection was used to continue this dissection. I dissected far enough laterally to allow for mesh placement, and also dissected medially to identify the pubic arch and Malik's ligament. The hernia sac was identified and carefully dissected posteriorly. The cord contents were also identified and the peritoneum was carefully dissected far enough posteriorly to allow for mesh placement. Once an adequate pocket was created, I then placed the mesh within the preperitoneal pocket and carefully unfolded it. The mesh was centered on the hernia defect with adequate overlap circumferentially. The inferior edge of the mesh was inspected to ensure that it was far enough away from the peritoneal edge. The mesh appeared in proper position overlying the entire myopectineal orifice. The mesh was secured in place using 3-0 Vicryl sutures at Malik's ligament, the superior medial edge of the mesh, and the supe
== END 2021-03-13 16:50 | disposition home or self-care (01) ==
PROVIDERS: PCP Internal Medicine; Visit Provider Surgery
PROC: 8E0Y4CZ Robotic Assisted Procedure of Lower Extremity, Percutaneous Endoscopic Approach (ICD-10-PCS; CPT 49650; principal; 2021-03-13 12:00)
DX: K40.90 Unilateral inguinal hernia, without obstruction or gangrene, not specified as recurrent (principal); I48.91 Unspecified atrial fibrillation; Z85.46 Personal history of malignant neoplasm of prostate; Z79.01 Long term (current) use of anticoagulants
CPT/HCPCS: 49650; S2900; 36415; 86900; 86901; 86922; A9270; J1100; J1885; J2250; J2405; J2704; J2710; J3010; J7030; J7120

== ENCOUNTER 2021-04-24 07:12 | Outpatient (CLI) | payer MEDICARE, SELFPAY ==
[2021-04-24 07:25] LABS: Basophils Absolute Auto 0.05 K/mm3 (0.00-0.10); Basophils Percent Auto 0.8 % (0.0-1.0); Eosinophils Absolute Auto 0.13 K/mm3 (0.02-0.50); Eosinophils Percent Auto 2.1 % (1.0-6.0); Hematocrit 46.1 % (37.0-46.0); Hemoglobin 15.3 g/dL (12.4-15.3); Immature Granulocyte Absolute 0.03 K/mm3 (0.00-0.00); Immature Granulocyte Percent A 0.5 % (0.0-0.0); Lymphocytes Absolute Auto 1.89 K/mm3 (1.10-4.50); Lymphocytes Percent Auto 30.9 % (18.0-42.0); Mean Corpuscular HGB Conc 33.2 g/dL (32.0-36.0); Mean Corpuscular Hemoglobin 31.7 pg (27.0-31.0); Mean Corpuscular Volume 95.4 fL (78.0-102.0); Mean Platelet Volume 9.5 fl (8.7-11.0); Monocytes Absolute Auto 0.77 K/mm3 (0.10-0.90); Monocytes Percent Auto 12.6 % (2.0-11.0); Neutrophils Absolute Auto 3.3 K/mm3 (1.7-7.2); Neutrophils Percent Auto 53.1 % (50.0-70.0); Platelet Count Result 211 K/mm3 (150-420); Red Blood Count 4.83 M/mm3 (4.70-6.10); Red Cell Distribution Width 13.2 % (11.6-14.4); White Blood Count 6.1 K/mm3 (4.8-10.8)
[2021-04-24 07:26] LABS: Add Urine Microscopic? NO; Appearance Urine Clear (Clear); Bilirubin Urine Negative (Negative); Blood Urine Negative (Negative); Color Urine Light Yellow (Yellow); Glucose Urine UA Negative (Negative); Ketones Urine Negative (Negative); Leukocyte Esterase Ur Negative (Negative); Nitrate Urine Negative (Negative); Protein Urine Negative (Negative); Specific Grav Ur 1.015 (1.010-1.020); Urobilinogen Urine 0.2 mg/dL (0.2-1.0); pH Urine 6.5 (5.0-8.0)
[2021-04-24 07:39] LABS: Hemoglobin A1C 5.9 % (<5.7)
[2021-04-24 08:09] LABS: Alanine Aminotransferase 37 U/L (16-63); Albumin Level 3.4 g/dL (3.4-5.0); Alkaline Phosphatase 103 U/L (46-116); Anion Gap 9 mmol/L (8-16); Aspartate Amino Transferase 20 U/L (15-37); Bilirubin,Total 0.6 mg/dL (0.00-1.00); Blood Urea Nitrogen 14 mg/dL (7-18); Calcium 8.8 mg/dL (8.5-10.1); Carbon Dioxide 27 mmol/L (21-32); Chloride 106 mmol/L (98-108); Cholesterol 220 mg/dL (0-200); Estimated Glomerular Filt Rate > 60; Glucose 112 mg/dL (70-99); HDL Direct 68 mg/dL (40-60); LDL Cholesterol Calculated 113 mg/dL (<130); Osmolality Calculated 295 mOsm/kg (285-295); Potassium 4.1 mmol/L (3.5-5.1); Sodium 142 mmol/L (136-145); Total Protein 6.1 g/dL (6.4-8.2); Triglycerides 194 mg/dL (0-150)
== END 2021-04-24 07:13 | disposition home or self-care (01) ==
LOC: CHSLAB 07:14
PROVIDERS: PCP Internal Medicine; Visit Provider Internal Medicine
DX: R73.01 Impaired fasting glucose (principal); E78.2 Mixed hyperlipidemia; I10 Essential (primary) hypertension; C61 Malignant neoplasm of prostate
CPT/HCPCS: 36415; 80053; 80061; 81003; 83036; 85025

== ENCOUNTER 2021-10-19 10:28 | Outpatient (CLI) | payer MEDICARE, SELFPAY ==
[2021-10-19 11:16] LABS: Basophils Absolute Auto 0.03 K/mm3 (0.00-0.10); Basophils Percent Auto 0.5 % (0.0-1.0); Eosinophils Absolute Auto 0.07 K/mm3 (0.02-0.50); Eosinophils Percent Auto 1.1 % (1.0-6.0); Hematocrit 43.4 % (37.0-46.0); Hemoglobin 14.4 g/dL (12.4-15.3); Immature Granulocyte Absolute 0.03 K/mm3 (0.00-0.00); Immature Granulocyte Percent A 0.5 % (0.0-0.0); Lymphocytes Absolute Auto 1.79 K/mm3 (1.10-4.50); Lymphocytes Percent Auto 28.7 % (18.0-42.0); Mean Corpuscular HGB Conc 33.2 g/dL (32.0-36.0); Mean Corpuscular Hemoglobin 31.9 pg (27.0-31.0); Mean Platelet Volume 9.8 fl (8.7-11.0); Monocytes Absolute Auto 0.77 K/mm3 (0.10-0.90); Monocytes Percent Auto 12.4 % (2.0-11.0); Neutrophils Absolute Auto 3.5 K/mm3 (1.7-7.2); Neutrophils Percent Auto 56.8 % (50.0-70.0); Platelet Count Result 191 K/mm3 (150-420); Red Blood Count 4.52 M/mm3 (4.70-6.10); Red Cell Distribution Width 13.4 % (11.6-14.4); White Blood Count 6.2 K/mm3 (4.8-10.8)
[2021-10-19 11:28] LABS: Add Urine Microscopic? NO; Appearance Urine Clear (Clear); Bilirubin Urine Negative (Negative); Blood Urine Negative (Negative); Color Urine Yellow (Yellow); Glucose Urine UA Negative (Negative); Ketones Urine Negative (Negative); Leukocyte Esterase Ur Negative (Negative); Nitrate Urine Negative (Negative); Protein Urine Negative (Negative); Urobilinogen Urine 0.2 mg/dL (0.2-1.0); pH Urine 5.5 (5.0-8.0)
[2021-10-19 11:32] LABS: Hemoglobin A1C 5.6 % (<5.7)
[2021-10-19 11:47] LABS: Creatinine Urine 145.84 mg/dL (40-278); MALB Creatinine Ratio 8.9 mg/g (0-30); Microalbumin Urine Random < 13.0 mg/L
[2021-10-19 11:48] LABS: Alanine Aminotransferase 33 U/L (16-63); Albumin Level 3.6 g/dL (3.4-5.0); Alkaline Phosphatase 84 U/L (46-116); Anion Gap 8 mmol/L (8-16); Aspartate Amino Transferase 21 U/L (15-37); Bilirubin,Total 0.6 mg/dL (0.00-1.00); Blood Urea Nitrogen 15 mg/dL (7-18); Calcium 9.1 mg/dL (8.5-10.1); Carbon Dioxide 26 mmol/L (21-32); Chloride 106 mmol/L (98-108); Cholesterol 128 mg/dL (0-200); Creatine Kinase 124 U/L (39-308); Estimated Glomerular Filt Rate > 60; Glucose 107 mg/dL (70-99); HDL Direct 79 mg/dL (40-60); LDL Cholesterol Calculated 29 mg/dL (<130); Osmolality Calculated 290 mOsm/kg (285-295); Potassium 4.3 mmol/L (3.5-5.1); Sodium 140 mmol/L (136-145); Total Protein 6.3 g/dL (6.4-8.2); Triglycerides 100 mg/dL (0-150)
== END 2021-10-19 10:29 | disposition home or self-care (01) ==
LOC: CHSLAB 10:30
PROVIDERS: PCP Internal Medicine; Visit Provider Internal Medicine
DX: E78.2 Mixed hyperlipidemia (principal); R73.01 Impaired fasting glucose; I48.0 Paroxysmal atrial fibrillation
CPT/HCPCS: 36415; 80053; 80061; 81003; 82043; 82550; 83036; 85025

== ENCOUNTER 2021-11-02 09:42 | Outpatient (CLI) | payer MEDICARE, SELFPAY ==
--- NOTE | ~2021-11-02 | XR_ITS ---
XR lumbar spine 2-3V DATE: 11/02/2021 10:23 INDICATION: Chronic low back pain for one year TECHNIQUE: AP, lateral, coned lateral lumbosacral views COMPARISON: None FINDINGS: There is degenerative spurring at T12-L1. There is mild to moderate degenerative disc disease and 3 mm retrolisthesis at L1-2. There is moderately severe degenerative disc disease and 3 mm retrolisthesis at L2-3. Mild degenerative disc disease at L3-4. Moderately severe degenerative disc disease and 4 mm retrolisthesis at L4-5 No fracture or bone destruction is detected. Included lower thoracic and lumbar pedicles are intact. The sacroiliac joints are normal. IMPRESSION: Multilevel degenerative disc disease with associated mild retrolisthesis at L1-2, L2-3 an d L4-5 Reviewed, dictated and finalized at location A. IMPRESSION: Multilevel degenerative disc disease with associated mild retrolist hesis at L1-2, L2-3 and L4-5
--- NOTE | ~2021-11-02 | XR_ITS ---
XR sacroiliac joints min 3V DATE: 11/02/2021 10:22 INDICATION: Chronic low back pain for one year TECHNIQUE: AP and bilateral oblique views COMPARISON: None FINDINGS: No fracture or dislocation, erosive change or ankylosis is noted at the sacroiliac joints. No sacral fracture is evident. Normal alignment at the pubic symphysis. IMPRESSION: Negative Reviewed, dictated and finalized at Location A. Reviewed, dictated and finalized at location A. IMPRESSION: Negative
== END 2021-11-02 09:43 | disposition home or self-care (01) ==
LOC: CHSIMG 09:45
PROVIDERS: PCP Internal Medicine; Visit Provider Internal Medicine
DX: M54.50 Low back pain, unspecified (principal)
CPT/HCPCS: 72100; 72202

== ENCOUNTER 2022-02-07 08:45 | Outpatient (CLI) | payer MEDICARE, SELFPAY ==
[2022-02-07 09:24] LABS: Cholesterol 152 mg/dL (0-200); HDL Direct 60 mg/dL (40-60); LDL Cholesterol Calculated 61 mg/dL (<130); Triglycerides 157 mg/dL (0-150)
== END 2022-02-07 08:46 | disposition home or self-care (01) ==
LOC: CHSLAB 08:47
PROVIDERS: PCP Internal Medicine; Visit Provider Internal Medicine
DX: E78.2 Mixed hyperlipidemia (principal)
CPT/HCPCS: 36415; 80061

== ENCOUNTER 2022-04-05 09:32 | Outpatient (CLI) | payer MEDICARE, SELFPAY ==
[2022-04-05 10:04] LABS: Basophils Absolute Auto 0.04 K/mm3 (0.00-0.10); Basophils Percent Auto 0.7 % (0.0-1.0); Eosinophils Absolute Auto 0.07 K/mm3 (0.02-0.50); Eosinophils Percent Auto 1.2 % (1.0-6.0); Hematocrit 44.5 % (37.0-46.0); Hemoglobin 14.6 g/dL (12.4-15.3); Immature Granulocyte Absolute 0.03 K/mm3 (0.00-0.00); Immature Granulocyte Percent A 0.5 % (0.0-0.0); Lymphocytes Absolute Auto 2.39 K/mm3 (1.10-4.50); Lymphocytes Percent Auto 39.3 % (18.0-42.0); Mean Corpuscular HGB Conc 32.8 g/dL (32.0-36.0); Mean Corpuscular Hemoglobin 31.7 pg (27.0-31.0); Mean Corpuscular Volume 96.5 fL (78.0-102.0); Mean Platelet Volume 9.4 fl (8.7-11.0); Monocytes Percent Auto 8.2 % (2.0-11.0); Neutrophils Absolute Auto 3.1 K/mm3 (1.7-7.2); Neutrophils Percent Auto 50.1 % (50.0-70.0); Platelet Count Result 240 K/mm3 (150-420); Red Blood Count 4.61 M/mm3 (4.70-6.10); Red Cell Distribution Width 12.5 % (11.6-14.4); White Blood Count 6.1 K/mm3 (4.8-10.8)
[2022-04-05 10:09] LABS: Appearance Urine Clear (Clear); Bilirubin Urine Negative (Negative); Blood Urine Negative (Negative); Glucose Urine UA Negative (Negative); Ketones Urine Negative (Negative); Leukocyte Esterase Ur 1+ (Negative); Nitrate Urine Negative (Negative); Protein Urine Negative (Negative); Specific Grav Ur 1.025 (1.010-1.020); Urobilinogen Urine 0.2 mg/dL (0.2-1.0); pH Urine 5.5 (5.0-8.0)
[2022-04-05 10:34] LABS: Hemoglobin A1C 5.6 % (<5.7)
[2022-04-05 10:36] LABS: Add Urine Microscopic? YES; Bacteria Urine None seen /hpf; Color Urine Light Yellow (Yellow); RBC Urine None seen /hpf (0-2); WBC Urine 0-3 /hpf (0-3)
[2022-04-05 10:50] LABS: Creatinine Urine 59.32 mg/dL (40-278); MALB Creatinine Ratio 21.9 mg/g (0-30); Microalbumin Urine Random < 13.0 mg/L
[2022-04-05 11:02] LABS: Alanine Aminotransferase 34 U/L (16-63); Albumin Level 3.7 g/dL (3.4-5.0); Alkaline Phosphatase 94 U/L (46-116); Anion Gap 8 mmol/L (8-16); Aspartate Amino Transferase 19 U/L (15-37); Bilirubin,Total 0.4 mg/dL (0.00-1.00); Blood Urea Nitrogen 13 mg/dL (7-18); Carbon Dioxide 29 mmol/L (21-32); Chloride 103 mmol/L (98-108); Cholesterol 173 mg/dL (0-200); Creatine Kinase 73 U/L (39-308); Estimated Glomerular Filt Rate > 60; Free T3 2.84 pg/mL (2.18-3.98); Free T4 Free Thyroxine 1.08 ng/dL (0.76-1.46); Glucose 101 mg/dL (70-99); HDL Direct 59 mg/dL (40-60); LDL Cholesterol Calculated 97 mg/dL (<130); NT Pro B Type Natriuretic Pept 212 pg/mL (0-125); Osmolality Calculated 290 mOsm/kg (285-295); Potassium 4.7 mmol/L (3.5-5.1); Sodium 140 mmol/L (136-145); Thyroid Stimulating Hormone 1.19 uIU/mL (0.36-3.74); Total Protein 6.3 g/dL (6.4-8.2); Triglycerides 85 mg/dL (0-150)
== END 2022-04-05 09:33 | disposition home or self-care (01) ==
LOC: CHSLAB 09:35
PROVIDERS: PCP Internal Medicine; Visit Provider Internal Medicine
DX: E78.2 Mixed hyperlipidemia (principal); I10 Essential (primary) hypertension; R73.01 Impaired fasting glucose; I48.0 Paroxysmal atrial fibrillation; I50.9 Heart failure, unspecified
CPT/HCPCS: 36415; 80053; 80061; 81001; 82043; 82550; 83036; 83880; 84439; 84443; 84481; 85025

== ENCOUNTER 2022-10-08 07:37 | Outpatient (CLI) | payer MEDICARE, SELFPAY ==
[2022-10-08 07:58] LABS: Appearance Urine Clear (Clear); Bilirubin Urine Negative (Negative); Blood Urine Negative (Negative); Color Urine Light Yellow (Yellow); Glucose Urine UA Negative (Negative); Ketones Urine Negative (Negative); Leukocyte Esterase Ur Negative (Negative); Nitrate Urine Negative (Negative); Protein Urine Negative (Negative); Specific Grav Ur <= 1.005 (1.010-1.020); Urobilinogen Urine 0.2 mg/dL (0.2-1.0); pH Urine 6.5 (5.0-8.0)
[2022-10-08 08:02] LABS: Add Urine Microscopic? NO
[2022-10-08 08:07] LABS: Creatinine Urine 29.49 mg/dL (40-278); Hemoglobin A1C 5.3 % (<5.7)
[2022-10-08 08:19] LABS: MALB Creatinine Ratio 4.4 mg/g (0-30); Microalbumin Urine Random < 1.3 mg/L
[2022-10-08 08:49] LABS: Alanine Aminotransferase 37 U/L (16-63); Albumin Level 3.6 g/dL (3.4-5.0); Alkaline Phosphatase 76 U/L (46-116); Anion Gap 9 mmol/L (8-16); Aspartate Amino Transferase 24 U/L (15-37); Bilirubin,Total 0.6 mg/dL (0.00-1.00); Blood Urea Nitrogen 14 mg/dL (7-18); Carbon Dioxide 28 mmol/L (21-32); Chloride 102 mmol/L (98-108); Cholesterol 199 mg/dL (0-200); Creatine Kinase 93 U/L (39-308); Estimated Glomerular Filt Rate > 60; Glucose 112 mg/dL (70-99); HDL Direct 65 mg/dL (40-60); LDL Cholesterol Calculated 105 mg/dL (<130); NT Pro B Type Natriuretic Pept 254 pg/mL (0-125); Osmolality Calculated 289 mOsm/kg (285-295); Potassium 4.3 mmol/L (3.5-5.1); Sodium 139 mmol/L (136-145); Total Protein 6.2 g/dL (6.4-8.2); Triglycerides 147 mg/dL (0-150)
== END 2022-10-08 07:38 | disposition home or self-care (01) ==
LOC: CHSLAB 07:39
PROVIDERS: PCP Internal Medicine; Visit Provider Internal Medicine
DX: I10 Essential (primary) hypertension (principal); E78.2 Mixed hyperlipidemia; R73.01 Impaired fasting glucose; I48.0 Paroxysmal atrial fibrillation; I50.9 Heart failure, unspecified
CPT/HCPCS: 36415; 80053; 80061; 81003; 82043; 82550; 83036; 83880

== ENCOUNTER 2023-03-28 07:21 | Outpatient (CLI) | payer MEDICARE, SELFPAY ==
[2023-03-28 07:38] LABS: Appearance Urine Clear (Clear); Basophils Absolute Auto 0.04 K/mm3 (0.00-0.10); Basophils Percent Auto 0.6 % (0.0-1.0); Bilirubin Urine Negative (Negative); Blood Urine Negative (Negative); Color Urine Light Yellow (Yellow); Eosinophils Absolute Auto 0.08 K/mm3 (0.02-0.50); Eosinophils Percent Auto 1.3 % (1.0-6.0); Glucose Urine UA Negative (Negative); Hematocrit 45.5 % (37.0-46.0); Hemoglobin 15.3 g/dL (12.4-15.3); Immature Granulocyte Absolute 0.02 K/mm3 (0.00-0.00); Immature Granulocyte Percent A 0.3 % (0.0-0.0); Ketones Urine Negative (Negative); Leukocyte Esterase Ur Negative (Negative); Lymphocytes Absolute Auto 1.82 K/mm3 (1.10-4.50); Lymphocytes Percent Auto 28.4 % (18.0-42.0); Mean Corpuscular HGB Conc 33.6 g/dL (32.0-36.0); Mean Corpuscular Hemoglobin 32.5 pg (27.0-31.0); Mean Corpuscular Volume 96.6 fL (78.0-102.0); Monocytes Absolute Auto 0.73 K/mm3 (0.10-0.90); Monocytes Percent Auto 11.4 % (2.0-11.0); Neutrophils Absolute Auto 3.7 K/mm3 (1.7-7.2); Nitrate Urine Negative (Negative); Platelet Count Result 233 K/mm3 (150-420); Protein Urine Negative (Negative); Red Blood Count 4.71 M/mm3 (4.70-6.10); Red Cell Distribution Width 12.7 % (11.6-14.4); Urobilinogen Urine 0.2 mg/dL (0.2-1.0); White Blood Count 6.4 K/mm3 (4.8-10.8)
[2023-03-28 07:40] LABS: Add Urine Microscopic? NO
[2023-03-28 08:14] LABS: Hemoglobin A1C 5.8 % (<5.7)
[2023-03-28 08:24] LABS: Alanine Aminotransferase 42 U/L (16-63); Albumin Level 3.4 g/dL (3.4-5.0); Alkaline Phosphatase 79 U/L (46-116); Anion Gap 6 mmol/L (8-16); Aspartate Amino Transferase 26 U/L (15-37); Bilirubin,Total 0.6 mg/dL (0.00-1.00); Blood Urea Nitrogen 12 mg/dL (7-18); Calcium 8.8 mg/dL (8.5-10.1); Carbon Dioxide 32 mmol/L (21-32); Chloride 99 mmol/L (98-108); Cholesterol 183 mg/dL (0-200); Estimated Glomerular Filt Rate > 60; Free T3 2.84 pg/mL (2.18-3.98); Free T4 Free Thyroxine 0.95 ng/dL (0.76-1.46); Glucose 117 mg/dL (70-99); HDL Direct 75 mg/dL (40-60); LDL Cholesterol Calculated 80 mg/dL (<130); Magnesium 2.1 mg/dL (1.8-2.4); NT Pro B Type Natriuretic Pept 186 pg/mL (0-125); Osmolality Calculated 284 mOsm/kg (285-295); Potassium 4.1 mmol/L (3.5-5.1); Sodium 137 mmol/L (136-145); Thyroid Stimulating Hormone 1.46 uIU/mL (0.36-3.74); Total Protein 6.1 g/dL (6.4-8.2); Triglycerides 140 mg/dL (0-150)
== END 2023-03-28 07:22 | disposition home or self-care (01) ==
PROVIDERS: PCP Internal Medicine; Visit Provider Internal Medicine
DX: I10 Essential (primary) hypertension (principal); E78.2 Mixed hyperlipidemia; R73.01 Impaired fasting glucose; I48.0 Paroxysmal atrial fibrillation; I50.9 Heart failure, unspecified
CPT/HCPCS: 36415; 80053; 80061; 81003; 83036; 83735; 83880; 84439; 84443; 84481; 85025

== ENCOUNTER 2024-10-05 08:11 | Outpatient (CLI) | payer MEDICARE, SELFPAY ==
--- NOTE | ~2024-10-05 | XR_ITS ---
Left wrist Technique: PA, oblique, lateral, and ulnar deviation views were obtained. Clinical History: Pain Findings: No acute fracture or dislocation is seen. Osseous alignment is anatomic. There is moderate to advanced degenerative change of the first CMC joint. Soft tissues are unremarkable. Impression: Moderate to advanced degenerative change of the first CMC joint. Reviewed, dictated and finalized at location . Impression: Moderate to advanced degenerative change of the first CMC joint.
--- NOTE | ~2024-10-05 | XR_ITS ---
Left Hand Technique: PA, oblique, and lateral views were obtained. Clinical History: Pain Findings: No acute fracture or dislocation is seen. Osseous alignment is anatomic. There is moderate to advanced degenerative change of the first CMC joint. Soft tissues are unremarkable. Impression: Moderate to advanced degenerative change of the first CMC joint. Reviewed, dictated and finalized at location . Impression: Moderate to advanced degenerative change of the first CMC joint.
--- OUTSIDE RECORDS SUMMARY | 2024-10-05 08:22 | XMS_ITS | Clinical Summary ---
Author Organization [facility] Address [address] [place] [address] Phone Care Team Providers Care Associate Professor Of Art History Name Role Phone Lamar Harry MD Primary Care Provider + Allergies No known active allergies Medications metoprolol tartrate (LOPRESSOR) 25 mg tablet TAKE 1/2 TABLET BY MOUTH 2 TIMES PER DAY 1 9 Active apixaban (Eliquis) 5 mg tablet TAKE 1 TABLET BY MOUTH TWICE A DAY 180 Tablet 1 0 Active lisinopriL (PRINIVIL) 10 mg tablet Take 1 Tablet (10 mg) by mouth daily. 100 Tablet 3 3 Active alirocumab (Praluent Pen) 75 mg/mL Pen Injector 75 mg PE/mL by Injection route every 30 days. 2 Active Active Problems Patient Care Coordination No te Formatting of this note migh t be different from the original. Yonathan Worthy MD--Asic Engineer ([facility] @ ) Problem Noted Date Diagnosed Date Benign hypertension 10/29/2018 Paroxysmal atrial fibrillation 10/29/2018 Mixed hyperlipidemia 10/29/2018 Encounters Date Type Department Care Team Description 09/23/2024 External Device Data [facility] ABSTRACTION Provider, Abstract 09/23/2024 External Device Data [facility] ABSTRACTION Provider, Abstract 09/22/2024 External Device Data [facility] ABSTRACTION Provider, Abstract 09/22/2024 External Device Data [facility] ABSTRACTION Provider, Abstract 09/21/2024 External Device Data [facility] ABSTRACTION Provider, Abstract 08/17/2024 External Device Data [facility] ABSTRACTION Provider, Abstract 08/16/2024 10:45 AM CDT Office Visit [facility] [address] [place] [address] Shade Gee MD Paroxysmal atrial fibrillation (CMS/HCC) (Primary Dx); Mixed hyperlipidemia; Benign hypertension 08/10/2024 External Device Data [facility] ABSTRACTION Provider, Abstract 07/21/2024 External Device Data [facility] ABSTRACTION Provider, Abstract 07/12/2024 External Device Data [facility] ABSTRACTION Provider, Abstract from Last 3 Months Family History Medical History Relation Name Comments No Known Problems Father No Known Problems Mother No Known Problems Sister Relation Name Status Comments Father Mother Sister Alive Social History Tobacco Use Types Packs/Day Years Used Date Smoking Tobacco: Smoker, Current Status Unknown Smokeless Tobacco: Former Tobacco Cessation:Ready to Q uit: Not Asked; Counseling Given: Not Answered Alcohol Use Standard Drinks/Week Comments Yes 0 (1 standard drink = 0.6 oz pur e alcohol) Sex and Gender Information Value Date Recorded Sex Assigned at Not on file Legal Sex Male 11:27 AM CDT Gender Identity Not on file Sexual Orientation Not on file Last Filed Vital Signs Vital Sign Reading Time Taken Comments Blood Pressure 118/74 08/16/2024 10:36 AM CDT Pulse 71 08/16/2024 10:36 AM CDT Temperature 36.2 C (97.2 F) 07/16/2021 3:05 PM CDT Respiratory Rate - - Oxygen Saturation 93% 08/16/2024 10:36 AM CDT Inhaled Oxygen Concentration - - Weight 86.2 kg (190 lb) 08/16/2024 10:36 AM CDT Height 177.8 cm (5' 10) 08/16/2024 10:36 AM CDT Body Mass Index 27.26 08/16/2024 10:36 AM CDT Plan of Treatment Upcoming Encounters Date Type Department Care Team (Late st Contact Info) Description 02/14/2025 10:45 AM CDT Office Visit [facility] [address] [place] [address] Shade Gee MD [address] [place] [address] [address] [place] [address] Health Maintenance Due Date Last Done Comments DTAP/TDAP/TD VACCINES (1 - Tdap) 1970 PNEUMOCOCCAL VACCINE 50+ YEARS (1 of 2 - PCV) 04/10/19 70 FIT-DNA Q 3 years 1996 FIT/FOBT Q 1 year 1996 Flex Sig/CT Colonography Q 5 years 1996 ZOSTER VACCINE (1 of 2) 2001 Abdominal Aortic Aneurysm (AAA) Screening 2016 INFLUENZA VACCINE (#1) 2023 COLORECTAL SCREENING 05/05/2024 05/05/2014 Colorectal Cancer Screening 05/05/2024 RSV VACCINE (60+ or ) (1 - 1-dose 75+ series) 2026 Insurance MEDICARE PART A AND B [facility] Care Teams Associate Professor Of Art History Relationship Specialty Start Date End Date Lamar Harry MD [address] [place] [address] PCP - General Internal Medicine 07/01/19
== END 2024-10-05 08:12 | disposition home or self-care (01) ==
LOC: CHSIMG 08:14
PROVIDERS: PCP Internal Medicine; Visit Provider Internal Medicine
DX: M79.642 Pain in left hand (principal)
CPT/HCPCS: 73110; 73130